=== PATIENT | male | born 1960 | race Caucasian/White ===

== ENCOUNTER 2017-04-17 15:39 | Outpatient (RCR) | payer OTHER, SELFPAY ==
[2017-04-17 17:16] LABS: Prothrombin Time (Protime)PT. 29.7 SECONDS (11.7-14.9)
== END 2017-04-17 15:45 | disposition home or self-care (01) ==
LOC: LAB 15:39
PROVIDERS: Family Provider Family Medicine; PCP Family Medicine; Visit Provider Internal Medicine Cardiovascular Disease
DX: I48.1 Persistent atrial fibrillation (principal); Z79.01 Long term (current) use of anticoagulants
CPT/HCPCS: 36415; 85610

== ENCOUNTER 2017-06-30 01:41 | Emergency (ER) | payer OTHER, SELFPAY ==
[2017-06-30 01:43] VITALS: BP 204/142; PULSE 98; RESP 17; TEMP 37.2; O2SAT 96; BMI 35.7
[2017-06-30 01:48] VITALS: BP 193/137
[2017-06-30 02:18] LABS: International Normalized Ratio 2.9; Prothrombin Time (Protime)PT. 30.5 SECONDS (11.7-14.9)
--- NOTE | 2017-06-30 02:26 | ED.VISSUMM ---
- ER Visit Summary Date of Service: 06/30/17 Chief Complaint: [] Nosebleed History of Present Illness: The patient is a 57 M [] presents with nosebleed beginning earlier today. Reports he is on Coumadin for atrial fibrillation. Reports he has been noncompliant in getting regularly scheduled INR checks. Reports compliance with his medications however. He presents with a blood pressure near 200 systolic despite being on blood pressure medication and reporting compliance. Reports he has been under some recent stress with the of a relative. Denies headache, blurred vision, chest pain, shortness of breath. Reports blood from the left nare. Physical Examination: [] Blood pressure 193/137, pulse ox 96% on room air, pulse 98, respiratory rate 17. 57-year-old male no acute distress. HEENT reveals blood from the left nare appearing from a likely posterior position. Right nares unremarkable. Remainder of exam is unremarkable. Test Results: [] INR:2.9 Emergency Department Course and Treatment: [] Patient given 0.2 mg orally of clonidine. Patient had Afrin soaked dressing applied to the left nares for 15 minutes. On serial examination patient had continued bleeding and this dressing was removed and replaced with 4.5 cm Rhino Rocket was placed in the left nares with good hemostasis. Patient was observed for an additional half an hour with no further bleeding. His blood pressure remained elevated and he was given 0.2 mg p.o. clonidine. INR measured 2.9. He was instructed to discontinue Coumadin use for just tomorrow and then continue his normal dosage. He was instructed to return to the emergency department in 72 hours for removal unless he can get into his primary care physician or ENT physician. He was instructed to watch his blood pressure closely. Treatment Plan: [] Follow-up with emergency department for nasal packing removal in 72 hours. Discontinue warfarin use for 24 hours. Disposition: [] Discharge, stable. Impression: [] Epistaxis Rhino Rocket placed by ED physician This note was generated with [employer] dictation software. It may contain incorrect words, spelling, and punctuation that were not noted in review of the chart prior to signing ED Disposition - Plan for ED Patient: Chief Complaint: Nosebleed Referrals: Efraín Sheldon MD [Primary Care Provider] -
[2017-06-30] MEDS: Oxymetazoline 0.05% 1 SPRAY SPRAY.BTL 2 SPRAY NASAL (02:34)
[2017-06-30] MEDS: cloNIDine HCl 0.1 MG Tablet 0.2 MG PO (02:34)
--- NOTE | 2017-06-30 02:56 | ED.DEP ---
ED Disposition - Plan for ED Patient: Disposition: Home or Assisted Living Chief Complaint: Nosebleed Instructions: Nosebleed Referrals: Efraín Sheldon MD [Primary Care Provider] - Additional Instructions: Do not take your Coumadin tomorrow and then the next day restart your normal regimen.
[2017-06-30 03:01] VITALS: BP 172/128; RESP 18
== END 2017-06-30 03:12 | disposition home or self-care (01) ==
PROVIDERS: Emergency Provider Emergency Medicine; Family Provider Family Medicine; PCP Family Medicine
DX: R04.0 Epistaxis (principal); I48.91 Unspecified atrial fibrillation; I10 Essential (primary) hypertension; E78.00 Pure hypercholesterolemia, unspecified; Z79.82 Long term (current) use of aspirin; Z79.01 Long term (current) use of anticoagulants; Z79.899 Other long term (current) drug therapy
CPT/HCPCS: 30901; 85610; 99282; A4216

== ENCOUNTER 2017-08-09 09:21 | Outpatient (RCR) | payer OTHER, SELFPAY ==
[2017-08-09 10:26] LABS: Prothrombin Time (Protime)PT. 31.4 SECONDS (11.7-14.9)
[2017-08-09 10:49] LABS: AST(SGOT) 29 U/L (15-37); Alanine Aminotransfer ALT/SGPT 46 U/L (16-61); Albumin, Serum 3.5 g/dL (3.2-5.0); Alkaline Phosphatase 97 U/L (45-117); Bilirubin, Direct 0.22 mg/dL (0.00-0.30); Cholesterol 109 mg/dL (200); Globulin 3.2 g/dL (2.2-4.2); High Density Lipoprotein 36 mg/dL; Protein, Total 6.7 g/dL (6.4-8.2); Triglycerides 114 mg/dL; Very Low Density Lipoprotein 23 mg/dL (5-40)
== END 2017-08-09 10:00 | disposition home or self-care (01) ==
LOC: LAB 09:21
PROVIDERS: Family Provider Family Medicine; PCP Family Medicine; Visit Provider Internal Medicine Cardiovascular Disease
DX: I48.91 Unspecified atrial fibrillation (principal); Z79.01 Long term (current) use of anticoagulants; E78.5 Hyperlipidemia, unspecified; Z79.899 Other long term (current) drug therapy
CPT/HCPCS: 36415; 80061; 80076; 85610

== ENCOUNTER → 2017-10-23 16:38 | Outpatient (CLI) | payer OTHER, SELFPAY ==
[2017-10-23 17:26] LABS: Absolute Lymphocyte Count 1.53 X10^3/ul (0.83-4.51); Basophil# 0.04 X10^3/uL; Basophil% 0.5 % (0-1); Eosinophil# 0.18 X10^3/uL; Eosinophils% 2.1 % (0-5); Hematocrit 45.6 % (40-54); Hemoglobin 15.4 g/dl (13.0-16.5); Lymphocyte # 1.53 X10^3/ul (4.0); Lymphocyte % 17.9 % (19-41); Mean Corp Hgb Conc 33.8 g/gl (32-36); Mean Corpuscular Hgb 30.1 pg (27.0-32.0); Mean Corpuscular Volume 89.1 fL (80-94); Mean Platelet Vol. 9.1 fl (6.2-12.0); Monocyte% 9.4 % (0-10); Neutrophil # 5.97 X10^3/uL (2.7-7.7); Platelet Count 206 K/mm3 (150-450); RBC Distribution Width SD 45.6 fl (35.1-43.9); Red Blood Count 5.12 M/mm3 (4.6-6.2); White Blood Count 8.5 K/mm3 (4.4-11.0)
[2017-10-23 17:32] LABS: POSITIVE COUNT NO; POSITIVE DIFFERENTIAL NO; POSITIVE MORPHOLOGY NO
[2017-10-23 17:47] LABS: International Normalized Ratio 2.8; Prothrombin Time (Protime)PT. 29.6 SECONDS (11.7-14.9)
[2017-10-23 18:02] LABS: ALB/GLOB Ratio 0.9 RATIO (0.9-2.4); AST(SGOT) 30 U/L (15-37); Alanine Aminotransfer ALT/SGPT 51 U/L (16-61); Albumin, Serum 3.4 g/dL (3.2-5.0); Alkaline Phosphatase 104 U/L (45-117); Anion Gap 8 (5-15); BUN 20 mg/dL (7-18); BUN/Creat Ratio 13.2 RATIO (10-20); Chloride 106 mmol/L (98-107); Creatinine, Serum 1.52 mg/dL (0.70-1.30); EST Glomerular Filtration Rate 51 mL/min (>60); Est Glom Filt Rate - Afr Amer 61 mL/min (>60); Globulin 3.8 g/dL (2.2-4.2); Glucose 94 mg/dL (74-106); Magnesium 2.1 mg/dL (1.6-2.6); Potassium 3.5 mmol/L (3.5-5.1); Protein, Total 7.2 g/dL (6.4-8.2); Sodium Level 139 mmol/L (136-145); T4 Total, Thyroxin 12.2 ug/dL (4.5-12.1); Thyroid Stim Hormone (TSH) 0.61 uIU/mL (0.358-3.74)
== END ==
PROVIDERS: Family Provider Family Medicine; PCP Family Medicine; Visit Provider Physician Assistant Medical
DX: I25.10 Atherosclerotic heart disease of native coronary artery without angina pectoris (principal); I42.9 Cardiomyopathy, unspecified; I10 Essential (primary) hypertension; I48.91 Unspecified atrial fibrillation
CPT/HCPCS: 36415; 80053; 83735; 84436; 84443; 85025; 85610

== ENCOUNTER 2017-11-21 15:27 | Outpatient (RCR) | payer OTHER, SELFPAY ==
[2017-11-05 16:57] LABS: International Normalized Ratio 3.3
[2017-11-21 16:14] LABS: International Normalized Ratio 3.1; Prothrombin Time (Protime)PT. 32.2 SECONDS (11.7-14.9)
== END 2017-11-21 17:00 | disposition home or self-care (01) ==
LOC: LAB 15:27
PROVIDERS: Family Provider Family Medicine; PCP Family Medicine; Visit Provider Internal Medicine Cardiovascular Disease
DX: I48.91 Unspecified atrial fibrillation (principal); Z79.01 Long term (current) use of anticoagulants
CPT/HCPCS: 36415; 85610

== ENCOUNTER 2017-12-12 15:08 | Outpatient (RCR) | payer OTHER, SELFPAY ==
[2017-12-12 17:15] LABS: International Normalized Ratio 2.6; Prothrombin Time (Protime)PT. 27.8 SECONDS (11.7-14.9)
== END 2017-12-12 16:00 | disposition home or self-care (01) ==
LOC: LAB 15:08
PROVIDERS: Family Provider Family Medicine; PCP Family Medicine; Visit Provider Internal Medicine Cardiovascular Disease
DX: I48.91 Unspecified atrial fibrillation (principal); Z79.01 Long term (current) use of anticoagulants
CPT/HCPCS: 36415; 85610

== ENCOUNTER 2018-04-02 15:25 | Outpatient (RCR) | payer OTHER, SELFPAY ==
[2018-04-02 16:56] LABS: International Normalized Ratio 2.1; Prothrombin Time (Protime)PT. 23.7 SECONDS (11.7-14.9)
== END 2018-04-02 16:25 | disposition home or self-care (01) ==
LOC: LAB 15:25
PROVIDERS: Family Provider Family Medicine; PCP Family Medicine; Referring Provider Internal Medicine Cardiovascular Disease; Visit Provider Internal Medicine Cardiovascular Disease
DX: I48.91 Unspecified atrial fibrillation (principal); Z79.01 Long term (current) use of anticoagulants
CPT/HCPCS: 36415; 85610

== ENCOUNTER 2018-06-27 09:13 | Outpatient (RCR) | payer OTHER, SELFPAY ==
[2018-04-06 15:31] VITALS: BMI 37.0
[2018-06-27 09:46] LABS: International Normalized Ratio 1.9; Prothrombin Time (Protime)PT. 21.6 SECONDS (11.7-14.9)
== END 2018-06-27 10:00 | disposition home or self-care (01) ==
LOC: LAB 09:13
PROVIDERS: Family Provider Family Medicine; PCP Family Medicine; Referring Provider Internal Medicine Cardiovascular Disease; Visit Provider Internal Medicine Cardiovascular Disease
DX: I48.91 Unspecified atrial fibrillation (principal); Z79.01 Long term (current) use of anticoagulants
CPT/HCPCS: 36415; 85610

== ENCOUNTER 2018-09-19 07:31 | Outpatient (RCR) | payer OTHER, SELFPAY ==
[2018-04-06 15:31] VITALS: BMI 37.0
[2018-07-01 15:31] VITALS: BMI 37.5
[2018-09-19 08:18] LABS: International Normalized Ratio 1.5; Prothrombin Time (Protime)PT. 18.3 SECONDS (11.7-14.9)
== END 2018-09-19 08:00 | disposition home or self-care (01) ==
LOC: LAB 07:31
PROVIDERS: Family Provider Family Medicine; PCP Family Medicine; Referring Provider Internal Medicine Cardiovascular Disease; Visit Provider Internal Medicine Cardiovascular Disease
DX: I48.91 Unspecified atrial fibrillation (principal); Z79.01 Long term (current) use of anticoagulants
CPT/HCPCS: 36415; 85610

== ENCOUNTER 2018-10-09 09:47 | Outpatient (RCR) | payer OTHER, SELFPAY ==
[2018-07-01 15:31] VITALS: BMI 37.5
[2018-10-09 08:55] VITALS: BMI 37.0
[2018-10-09 10:23] LABS: International Normalized Ratio 1.8; Prothrombin Time (Protime)PT. 20.8 SECONDS (11.7-14.9)
== END 2018-10-09 16:26 | disposition home or self-care (01) ==
LOC: LAB 09:47
PROVIDERS: Family Provider Family Medicine; PCP Family Medicine; Referring Provider Internal Medicine Cardiovascular Disease; Visit Provider Internal Medicine Cardiovascular Disease
DX: I48.91 Unspecified atrial fibrillation (principal); Z79.01 Long term (current) use of anticoagulants; Z79.899 Other long term (current) drug therapy
CPT/HCPCS: 36415; 85610

== ENCOUNTER 2018-12-09 15:25 | Outpatient (RCR) | payer OTHER, SELFPAY ==
[2018-10-28 16:26] VITALS: BMI 37.0
[2018-12-09 16:24] LABS: International Normalized Ratio 1.9; Prothrombin Time (Protime)PT. 21.7 SECONDS (11.7-14.9)
== END 2018-12-09 16:00 | disposition home or self-care (01) ==
LOC: LAB 15:25
PROVIDERS: Family Provider Family Medicine; PCP Family Medicine; Referring Provider Internal Medicine Cardiovascular Disease; Visit Provider Internal Medicine Cardiovascular Disease
DX: I48.91 Unspecified atrial fibrillation (principal); Z79.01 Long term (current) use of anticoagulants; Z79.899 Other long term (current) drug therapy
CPT/HCPCS: 36415; 85610

== ENCOUNTER 2019-01-22 09:54 | Outpatient (RCR) | payer OTHER, SELFPAY ==
[2018-10-28 16:26] VITALS: BMI 37.0
[2019-01-22 10:36] LABS: International Normalized Ratio 2.6; Prothrombin Time (Protime)PT. 27.7 SECONDS (11.7-14.9)
== END 2019-01-22 18:00 | disposition home or self-care (01) ==
LOC: LAB 09:54
PROVIDERS: Family Provider Family Medicine; PCP Family Medicine; Referring Provider Internal Medicine Cardiovascular Disease; Visit Provider Internal Medicine Cardiovascular Disease
DX: I48.91 Unspecified atrial fibrillation (principal); Z79.01 Long term (current) use of anticoagulants; Z79.899 Other long term (current) drug therapy
CPT/HCPCS: 36415; 85610

== ENCOUNTER 2019-04-19 09:06 | Outpatient (RCR) | payer OTHER, SELFPAY ==
[2019-01-22 14:32] VITALS: BMI 36.5
[2019-04-19 10:37] LABS: International Normalized Ratio 2.3; Prothrombin Time (Protime)PT. 24.9 SECONDS (11.7-14.9)
[2019-04-19 11:11] LABS: AST(SGOT) 20 U/L (15-37); Alanine Aminotransfer ALT/SGPT 33 U/L (16-61); Albumin, Serum 3.4 g/dL (3.2-5.0); Alkaline Phosphatase 97 U/L (45-117); Bilirubin, Direct 0.24 mg/dL (0.00-0.30); Cholesterol 108 mg/dL (200); Globulin 3.6 g/dL (2.2-4.2); High Density Lipoprotein 34 mg/dL; T4 Total, Thyroxin 9.1 ug/dL (4.5-12.1); Thyroid Stim Hormone (TSH) 1.17 uIU/mL (0.358-3.74); Triglycerides 106 mg/dL; Very Low Density Lipoprotein 21 mg/dL (5-40)
== END 2019-04-19 18:00 | disposition home or self-care (01) ==
LOC: LAB 09:06
PROVIDERS: Family Provider Family Medicine; PCP Family Medicine; Referring Provider Internal Medicine Cardiovascular Disease; Visit Provider Internal Medicine Cardiovascular Disease
DX: I48.19 Other persistent atrial fibrillation (principal); E78.00 Pure hypercholesterolemia, unspecified; Z79.01 Long term (current) use of anticoagulants; Z79.899 Other long term (current) drug therapy
CPT/HCPCS: 36415; 80061; 80076; 84436; 84443; 85610

== ENCOUNTER 2020-02-05 08:05 | Outpatient (RCR) | payer OTHER, SELFPAY ==
[2019-04-21 15:20] VITALS: BMI 36.8
== END 2020-02-05 18:00 | disposition home or self-care (01) ==
LOC: LAB 08:05
PROVIDERS: Family Provider Family Medicine; PCP Family Medicine; Referring Provider Internal Medicine Cardiovascular Disease; Visit Provider Internal Medicine Cardiovascular Disease
DX: I48.19 Other persistent atrial fibrillation (principal); Z79.01 Long term (current) use of anticoagulants
CPT/HCPCS: 36415; 85610

== ENCOUNTER → 2020-02-16 14:41 | Outpatient (CLI) | payer OTHER, SELFPAY ==
[2020-02-07 14:53] VITALS: BMI 36.1
--- NOTE | 2020-02-16 14:44 | ECHOCS_ITS ---
Reason For Study: Arrhythmia Procedure This was a 2D Doppler, Color Flow transthoracic echocardiogram. The study was technically difficult. Contrast injection was performed. Exam performed in department. Left Ventricle Normal LV size. Left ventricular systolic function is normal. The estimated ejection fraction is 55 %. Unable to assess diastolic dysfunction. No regional wall motion abnormalities noted. Right Ventricle Normal RV size. Normal systolic function. Atria The left atrium is moderately enlarged. The right atrium is moderately enlarged. No doppler evidence for ASD. Mitral Valve There is no mitral annular calcification. Normal mitral valve. Mild (1+) eccentric mitral valve insufficiency. Tricuspid Valve Normal tricuspid valve. Moderate (2+) eccentric tricuspid valve insufficiency. Right ventricular systolic pressure estimated to be 33 mmHg. Aortic Valve The aortic valve is not well visualized. Mild focal aortic valve calcification. Trivial aortic valve insufficiency. Pulmonic Valve The pulmonic valve is not well visualized. Great Vessels The aortic root is not well visualized. Pericardium/Pleural No pericardial effusion. Medication 22 gauge I.V. with prn adaptor inserted into left arm. Diluted definity 2ml given slow IV push to enhance endocardial definition. MMode/2D Measurements & Calculations LVIDd: 3.9 cm IVSd: 1.7 cm LA dimension: 4.2 cm LVIDs: 2.7 cm LVPWd: 1.4 cm FS: 31.3 % LAV(MOD-bp): 124.3 ml LA A4 area: 32.2 cm2 RA A4 area: 27.2 cm2 LAV(MOD-bp) Indexed: 50.5 ml/m2 LAV(MOD-sp2): 122.4 ml LAV(MOD-sp4): 126.5 ml Doppler Measurements & Calculations MV E max dayday: 89.9 cm/sec Ao V2 max: 103.7 cm/sec LV V1 max: 90.1 cm/sec Ao max P.3 mmHg LV V1 max P.3 mmHg PA V2 max: 144.5 cm/sec TR max dayday: 274.2 cm/sec TR max P.1 mmHg Interpretation Summary The study was technically difficult. Contrast injection was performed. Left ventricular systolic function is normal. The estimated ejection fraction is 55 %. The left atrium is moderately enlarged. The right atrium is moderately enlarged. Mild (1+) eccentric mitral valve insufficiency. Moderate (2+) eccentric tricuspid valve insufficiency. Mild focal aortic valve calcification. Trivial aortic valve insufficiency. Right ventricular systolic pressure estimated to be 33 mmHg. Unable to assess diastolic dysfunction. Ordering Physician: Augusto Wright Referring Physician: Efraín Sheldon Performed By: Jim Santamaria RCS
== END ==
PROVIDERS: PCP Family Medicine; Referring Provider Internal Medicine Cardiovascular Disease; Visit Provider Internal Medicine Cardiovascular Disease
DX: I25.10 Atherosclerotic heart disease of native coronary artery without angina pectoris (principal); I42.9 Cardiomyopathy, unspecified; I50.20 Unspecified systolic (congestive) heart failure; I48.19 Other persistent atrial fibrillation; I34.0 Nonrheumatic mitral (valve) insufficiency; I36.1 Nonrheumatic tricuspid (valve) insufficiency; I10 Essential (primary) hypertension
CPT/HCPCS: 93306; Q9957; A4216; C8929

== ENCOUNTER 2020-08-05 08:44 | Outpatient (RCR) | payer OTHER, SELFPAY ==
[2020-02-07 14:53] VITALS: BMI 36.1
[2020-08-05 09:44] LABS: AST(SGOT) 30 U/L (15-37); Alanine Aminotransfer ALT/SGPT 37 U/L (16-61); Albumin, Serum 3.6 g/dL (3.2-5.0); Alkaline Phosphatase 103 U/L (45-117); Bilirubin, Direct 0.26 mg/dL (0.00-0.30); Cholesterol 95 mg/dL (200); Globulin 3.4 g/dL (2.2-4.2); High Density Lipoprotein 34 mg/dL; Triglycerides 125 mg/dL; Very Low Density Lipoprotein 25 mg/dL (5-40)
== END 2020-08-05 18:00 | disposition home or self-care (01) ==
LOC: LAB 08:44
PROVIDERS: Family Provider Family Medicine; PCP Family Medicine; Referring Provider Internal Medicine Cardiovascular Disease; Visit Provider Internal Medicine Cardiovascular Disease
DX: I48.19 Other persistent atrial fibrillation (principal); Z79.01 Long term (current) use of anticoagulants; E78.5 Hyperlipidemia, unspecified
CPT/HCPCS: 36415; 80061; 80076

== ENCOUNTER 2021-01-13 08:39 | Outpatient (RCR) | payer OTHER, SELFPAY ==
[2020-08-09 15:04] VITALS: BMI 36.1
[2021-01-13 09:28] LABS: International Normalized Ratio 1.9; Prothrombin Time (Protime)PT. 21.4 SECONDS (11.7-14.9)
[2021-01-13 09:31] LABS: AST(SGOT) 25 U/L (15-37); Alanine Aminotransfer ALT/SGPT 34 U/L (16-61); Albumin, Serum 3.4 g/dL (3.2-5.0); Alkaline Phosphatase 94 U/L (45-117); Cholesterol 104 mg/dL (200); Globulin 3.6 g/dL (2.2-4.2); High Density Lipoprotein 37 mg/dL; Triglycerides 107 mg/dL; Very Low Density Lipoprotein 21 mg/dL (5-40)
== END 2021-01-28 03:37 | disposition home or self-care (01) ==
LOC: LAB 08:39
PROVIDERS: Family Provider Family Medicine; PCP Family Medicine; Referring Provider Internal Medicine Cardiovascular Disease; Visit Provider Internal Medicine Cardiovascular Disease
DX: E78.00 Pure hypercholesterolemia, unspecified (principal); I42.9 Cardiomyopathy, unspecified; I27.29 Other secondary pulmonary hypertension; I48.19 Other persistent atrial fibrillation; Z79.01 Long term (current) use of anticoagulants; Z79.899 Other long term (current) drug therapy
CPT/HCPCS: 36415; 80061; 80076; 85610

== ENCOUNTER 2021-05-19 09:29 | Outpatient (RCR) | payer OTHER, SELFPAY ==
[2021-01-28 03:37] VITALS: BMI 36.1
== END 2021-05-19 18:00 | disposition home or self-care (01) ==
LOC: LAB 09:29
PROVIDERS: Nurse Practitioner Family; Family Provider Family Medicine; PCP Family Medicine; Referring Provider Internal Medicine Cardiovascular Disease; Visit Provider Internal Medicine Cardiovascular Disease
DX: I48.19 Other persistent atrial fibrillation (principal); Z79.01 Long term (current) use of anticoagulants
CPT/HCPCS: 36415; 85610

== ENCOUNTER 2021-11-14 13:43 | Outpatient (RCR) | payer OTHER, SELFPAY ==
[2021-05-29 09:35] VITALS: BMI 36.1
[2021-11-10 10:12] LABS: AST(SGOT) 21 U/L (15-37); Alanine Aminotransfer ALT/SGPT 33 U/L (16-61); Albumin, Serum 3.4 g/dL (3.2-5.0); Alkaline Phosphatase 91 U/L (45-117); Bilirubin, Direct 0.32 mg/dL (0.00-0.30); Cholesterol 101 mg/dL (200); Globulin 3.6 g/dL (2.2-4.2); High Density Lipoprotein 34 mg/dL; T4 Total, Thyroxin 7.3 ug/dL (4.5-12.1); Triglycerides 139 mg/dL; Very Low Density Lipoprotein 28 mg/dL (5-40)
[2021-11-14 14:30] LABS: International Normalized Ratio 2.1; Prothrombin Time (Protime)PT. 22.8 SECONDS (11.7-14.9)
== END 2021-11-14 18:00 | disposition home or self-care (01) ==
LOC: LAB 13:43
PROVIDERS: Family Provider Family Medicine; PCP Family Medicine; Referring Provider Internal Medicine Cardiovascular Disease; Visit Provider Internal Medicine Cardiovascular Disease
DX: E78.00 Pure hypercholesterolemia, unspecified (principal); I48.19 Other persistent atrial fibrillation; Z79.01 Long term (current) use of anticoagulants
CPT/HCPCS: 36415; 80061; 80076; 84436; 84443; 85610

== ENCOUNTER 2022-05-11 07:57 | Outpatient (RCR) | payer OTHER, SELFPAY ==
[2021-11-28 22:49] VITALS: BMI 36.1
[2022-05-11 09:09] LABS: AST(SGOT) 23 U/L (15-37); Alanine Aminotransfer ALT/SGPT 32 U/L (16-61); Albumin, Serum 3.5 g/dL (3.2-5.0); Alkaline Phosphatase 96 U/L (45-117); Bilirubin, Direct 0.28 mg/dL (0.00-0.30); Cholesterol 94 mg/dL (200); Globulin 3.5 g/dL (2.2-4.2); High Density Lipoprotein 39 mg/dL; Triglycerides 98 mg/dL; Very Low Density Lipoprotein 20 mg/dL (5-40)
[2022-05-11 09:30] LABS: International Normalized Ratio 2.1; Prothrombin Time (Protime)PT. 23.5 SECONDS (11.7-14.9)
== END 2022-05-11 18:00 | disposition home or self-care (01) ==
LOC: LAB 07:57
PROVIDERS: Family Provider Family Medicine; PCP Family Medicine; Referring Provider Internal Medicine Cardiovascular Disease; Visit Provider Internal Medicine Cardiovascular Disease
DX: E78.00 Pure hypercholesterolemia, unspecified (principal); I48.19 Other persistent atrial fibrillation; Z79.01 Long term (current) use of anticoagulants; I25.10 Atherosclerotic heart disease of native coronary artery without angina pectoris
CPT/HCPCS: 36415; 80061; 80076; 85610

== ENCOUNTER 2022-10-19 16:10 | Emergency (ER) | payer OTHER, SELFPAY ==
[2022-10-19] VITALS (11 sets, daily range): BP systolic 102–155; BP diastolic 68–106; PULSE 80–110; RESP 16–20; TEMP 36.9–37.1; O2SAT 94–98; BMI 35.9
[2022-10-19 16:35] LABS: Absolute Lymphocyte Count 1.51 X10^3/uL (0.83-4.51); Absolute Neutrophil Count 15.2 X10^3/uL (2.0-7.7); Basophil# 0.12 X10^3/uL; Basophil% 0.7 % (0-1); Eosinophil# 0.12 X10^3/uL; Eosinophils% 0.7 % (0-5); Hematocrit 41.6 % (40-54); Hemoglobin 14.4 g/dL (13.0-16.5); Lymphocyte # 1.51 X10^3/ul (0.83-4.51); Lymphocyte % 8.2 % (19-41); Mean Corp Hgb Conc 34.6 g/dL (32-36); Mean Corpuscular Hgb 30.4 pg (27.0-32.0); Mean Corpuscular Volume 87.8 fL (80-94); Monocyte# 1.32 X10^3/uL; Monocyte% 7.2 % (0-10); NRBC Flagged by Analyzer 0 % (0-5); Neutrophil # 15.19 X10^3/uL (2.7-7.7); Neutrophil % 82.6 % (47-70); Platelet Count 233 K/mm3 (150-450); RBC Distribution Width CV 12.6 % (11.6-14.6); RBC Distribution Width SD 40.3 fl (35.1-43.9); Red Blood Count 4.74 M/mm3 (4.6-6.2); White Blood Count 18.4 K/mm3 (4.4-11.0)
--- NOTE | 2022-10-19 16:43 | EDS_ITS ---
HPI History of Present Illness Chief Complaint: Lower Extremity Injury Informant: patient Narrative Narrative: Patient states he was lifting a large piece of metal that had another piece of metal and there was some flipping of metal before a large piece of metal hit him across the left lower face, the chest, and his right groin which is where the major issue is due to significant bruising and pain. Able to walk but painful. Able to swallow and breathe without difficulty. He states the swelling at the left side of his face has gone down compared to what it was. He is on warfarin. Last time he had his INR checked was in May. He is on it for prophylaxis due to atrial fibrillation. Denies any abdominal pain or syncope/near syncope, just mostly pain. [facility] Medical History (Updated 10/19/22 @ 17:[address] Ad Morrow MD) Abnormal pulmonary function test Afib Atherosclerotic heart disease of [place] coronary artery without angina pectoris Atrial fibrillation Cardiomyopathy Chronic kidney disease Chronic kidney disease (CKD) Congestive heart failure with left ventricular systolic dysfunction COPD (chronic obstructive pulmonary disease) Essential hypertension Family history of CVA Family history of hypertension Hyperlipidemia Hypokalemia Left bundle branch block (LBBB) Long-term use of high-risk medication Mitral valve insufficiency Nonrheumatic mitral valve regurgitation Nonrheumatic tricuspid (valve) insufficiency LOUISE (obstructive sleep apnea) Paroxysmal atrial fibrillation Persistent atrial fibrillation Pulmonary hypertension Tricuspid valve insufficiency Home Medications aspirin 81 mg tablet,delayed release 81 mg PO DAILY #90 tabs 12/08/17 [Rx Last Taken Unknown] clonidine HCl 0.2 mg tablet 0.2 mg PO TID 90 days #270 tabs 01/31/22 [Rx Last Taken Unknown] furosemide 20 mg tablet 20 mg PO DAILY #90 tabs 01/31/22 [Rx Last Taken Unknown] hydralazine 100 mg tablet 100 mg .Route TID #270 tabs 05/01/22 [Rx Last Taken Unknown] atorvastatin 10 mg tablet 10 mg PO DAILY #90 tabs 07/15/22 [Rx Last Taken Unknown] lisinopril 20 mg tablet 20 mg .Route BID #180 tabs 07/29/22 [Rx Last Taken Unknown] potassium chloride 20 mEq tablet,extended release(part/cryst) (Klor-Con M) See Rx Instructions .Route .COMPLEX #90 tabs 08/19/22 [Rx Last Taken Unknown] carvedilol 25 mg tablet 25 mg PO BID #180 tabs 09/19/22 [Rx Last Taken Unknown] hydrocodone-acetaminophen 5-325mg 5mg-325mg 1 tab PO Q6H PRN PRN Pain 3 days #10 TABLETS 10/19/22 [Rx Last Taken Unknown] Allergy/AdvReac Type Severity Reaction Status Date / Time No Known Allergies Allergy Verified 05/16/22 15:13 Family History Mother CAD (coronary artery disease) Hypertension Father , Age 81 Diabetes Hypertension Brother Hypertension Sister CVA (cerebral vascular accident) Hypertension Surgical History History of right and left heart catheterization (01/22/15) Social History Smoking Status: Never smoker alcohol intake: never substance use type: does not use caffeine: Yes Type: carbonated beverages Number of servings: 2 ROS ROS ED Constitutional Constitutional ED: Denies chills or fever(s) Eyes Eyes: Denies change in vision or diplopia ENT ENT ED: Denies rhinorrhea or sore throat Cardiovascular Cardiovascular: Denies chest pain or palpitations Respiratory/Chest Respiratory/Chest: Denies cough or dyspnea Gastrointestinal Gastrointestinal: Denies abdominal pain, diarrhea, nausea or vomiting Genitourinary Genitourinary ED: Denies dysuria or hematuria Musculoskeletal Musculoskeletal: Reports extremity pain and neck pain; Denies back pain Integumentary Reports as per HPI; Denies abscess or rash Neurologic Neurologic: Denies headache(s), paresthesias or weakness Psychiatric Psychiatric: Denies anxiety or suicidal thoughts Hematologic/Lymphatic Hematologic/Lymphatic: Reports easy bleeding and easy bruising EXAM Physical Exam Const Vital Signs: 10/19/22 16:14 10/19/22 16:26 10/19/22 16:26 Temperature 98.4 F Temperature Source Temporal Pulse Rate 96 87 Respiratory Rate 16 Respiratory Effort Normal Non-Labored Respiratory Depth Normal Respiratory Pattern Normal Blood Pressure 155/106 H Blood Pressure Mean 122 Pulse Ox 96 98 Oxygen Delivery Method Room Air Room Air Room Air 10/19/22 17:26 10/19/22 18:00 Temperature Temperature Source Pulse Rate 81 88 Respiratory Rate 16 16 Respiratory Effort Respiratory Depth Respiratory Pattern Blood Pressure 125/88 H 106/85 H Blood Pressure Mean 100 92 Pulse Ox 98 97 Oxygen Delivery Method Room Air Room Air Positive well nourished and well developed General Appearance ED: well developed and NAD HEENT Reports moist mucous membranes HEENT Narrative: Swelling and tenderness to the left lateral neck just below the angle of the mandible which itself is nontender. Tissues are soft, not purpuric, there is no trismus. Intraoral exam is normal without signs of injury. There is no stridor or difficulty phonating. normocephalic and atraumatic Eyes PERRL and EOMs intact bilaterally Neck full ROM and supple General: tenderness; Negative for torticollis Chest Wall inspection of chest normal and palpation of chest normal Chest Narrative: Nontender lateral compression of the rib cage. Clavicles nontender sternum nontender and atraumatic. Resp normal respiratory effort and clear to auscultation bilaterally Cardio no murmurs Rhythm: abnormal rhythm irregularly irregular GI non-tender and non-distended Auscultation: normoactive bowel sounds Palpation: soft Back/Spine no CVA tenderness General Back: other FROM Extremity normal to inspection Extremity Narrative: Large area of swelling purpura/ecchymosis to the right groin involving mostly the thigh below the inguinal ligament. There is no abdominal tenderness. No bony tenderness at the greater trochanter, and the ASIS is nontender pelvis is stable to AP compression. General Extremety ED: Yes tenderness; Negative for edema or pulses abnormal General Extremity: Negative for edema or pulses abnormal Neuro oriented x3, CN's II-XII intact bilaterally and no sensory deficits noted Sensorium / Orientation: awake and alert Motor Exam: strength 5/5 throughout Skin no rashes or lesions noted and no wounds Skin Narrative: Large amount of purpura/ecchymosis in the right proximal thigh with a large amount of swelling associated with it. Intact pulses distally. MDM MDM MDM Narrative Medical decision making narrative: Hemoglobin reassuring at 14.4, and his INR is 1.7. I obtained x-rays of the right hip, 3 views of my interpretation negative for any acute bony fracture or injury. Radiology in agreement. Given that the patient has had improvement in the hematoma of his left neck, I do not think he needs angiography or advanced imaging here, he is having no trouble swallowing or breathing, so I think simply reversing his INR with oral vitamin K is reasonable without doing any other emergent reversing. I discussed with Dr. Fuentes who is on-call for the practice. The patient thinks he can go home, does not need be admitted to short-term rehab. She agrees with my decision to have the patient discontinue his warfarin for now, since I think the risk of worsening neck hematoma outweighs the potential risk of stroke since he is only anticoagulated for stroke prophylaxis. It is Friday and they will set up outpatient follow-up for Friday. Additionally, since the patient had a neck hematoma that is a day old and better than it was yesterday I feel he does not need to be monitored as an inpatient. Patient also prescribed something to use for pain. Lab Data Attestation: I reviewed the patient's lab results. Labs: Laboratory Results - last 24 hr 10/19/22 16:25 WBC 18.4 H RBC 4.74 Hgb 14.4 Hct 41.6 MCV 87.8 MCH 30.4 MCHC 34.6 RDW Std Deviation 40.3 RDW Coeff of [place] 12.6 Plt Count 233 MPV 9.0 Immature Gran % (Auto) 0.600 Neut % (Auto) 82.6 H Lymph % (Auto) 8.2 L [place] % (Auto) 7.2 Eos % (Auto) 0.7 Baso % (Auto) 0.7 Absolute Neuts (auto) 15.2 H Absolute Lymphs (auto) 1.51 Nucleated RBC % 0 PT 19.6 H INR 1.7 Sodium 139 Potassium 3.7 Chloride 108 H Carbon Dioxide 25.0 Anion Gap 6 BUN 18 Creatinine 1.39 H Estim Creat Clear Calc 63.87 Est GFR (MDRD) Af Amer 67 Est GFR (MDRD) Non-Af 55 L BUN/Creatinine Ratio 12.9 Glucose 173 H Calcium 8.3 L Radiography Diagnostic Testing: Clinical Impression(s) from Imaging Studies Hip/Pelvis X-Ray 10/19/22 17:05 IMPRESSION: No evidence of displaced pelvic or hip fracture. Electronically Signed: Lalo Donahue MD at 17:50 EDT , Discharge Plan Triage Chief Complaint: Lower Extremity Injury ED Provider: Ad Morrow Dx/Rx/DC Orders Clinical Impression: Traumatic hematoma of right thigh, Hematoma of neck, Warfarin-induced coagulopathy Instructions: ED Hematoma Prescriptions: New hydrocodone-acetaminophen [hydrocodone-acetaminophen] 5-325 mg tablet 1 tab PO Q6H PRN PRN (Reason: Pain) 3 Days Qty: 10 0RF Continued aspirin 81 mg tablet,delayed release (DR/EC) 81 mg PO DAILY Qty: 90 3RF furosemide 20 mg tablet 20 mg PO DAILY Qty: 90 3RF clonidine HCl 0.2 mg tablet 0.2 mg PO TID 90 Days Qty: 270 3RF hydralazine 100 mg tablet 100 mg .ROUTE TID Qty: 270 3RF Rx Instructions: 100 mg three times a day; atorvastatin 10 mg tablet 10 mg PO DAILY Qty: 90 3RF lisinopril 20 mg tablet 20 mg .ROUTE BID Qty: 180 4RF Rx Instructions: 20 mg twice a day; potassium chloride [Klor-Con M20] 20 mEq tablet,ER particles/crystals See Rx Instructions .ROUTE .COMPLEX Qty: 90 3RF Dose Instruction: TAKE 1 TABLET BY MOUTH EVERY DAY Rx Instructions: TAKE 1 TABLET BY MOUTH EVERY DAY carvedilol 25 mg tablet 25 mg PO BID Qty: 180 3RF Discontinued warfarin 5 mg tablet 5 mg PO DAILY Qty: 90 3RF Protocol: Dose Management Condition: Friday Dose/Route: 5 mg Instruction: 1 x 5 mg tablet Condition: Friday Dose/Route: 5 mg Instruction: 1 x 5 mg tablet Condition: Friday Dose/Route: 5 mg Instruction: 1 x 5 mg tablet Condition: Friday Dose/Route: 5 mg Instruction: 1 x 5 mg tablet Condition: Dose/Route: 5 mg Instruction: 1 x 5 mg tablet Condition: Friday Dose/Route: 5 mg Instruction: 1 x 5 mg tablet Condition: Friday Dose/Route: 5 mg Instruction: 1 x 5 mg tablet Protocol Text: Adjustment Start Date: 05/16/22 INR Value: 2.1 INR Date: 05/11/22 Recheck Date: 06/13/22 Primary Care Provider: Luisa Paulson Referrals: Luisa Paulson NP-C [Primary Care Provider] - 10/21/22 (Call for appointment time) Disposition Disposition: Home, Self Care
[2022-10-19 16:45] LABS: International Normalized Ratio 1.7; Prothrombin Time (Protime)PT. 19.6 SECONDS (11.7-14.9)
[2022-10-19] MEDS: Morphine 4 MG/ML Syringe IV (16:46)
[2022-10-19 16:48] LABS: Anion Gap 6 (5-15); BUN 18 mg/dL (7-18); BUN/Creat Ratio 12.9 RATIO (10-20); Calcium,Total 8.3 mg/dL (8.5-10.1); Chloride 108 mmol/L (98-107); Creatinine, Serum 1.39 mg/dL (0.70-1.30); EST Glomerular Filtration Rate 55 mL/min (>60); Est Glom Filt Rate - Afr Amer 67 mL/min (>60); Estimated Creatinine Clearance 63.87 ml/min; Glucose 173 mg/dL (74-106); Potassium 3.7 mmol/L (3.5-5.1); Sodium Level 139 mmol/L (136-145)
--- NOTE | 2022-10-19 17:05 | RAD_ITS ---
EXAM: XR RIGHT HIP WITH PELVIS WHEN PERFORMED, 2 OR 3 VIEWS CLINICAL INDICATION: inury TECHNIQUE: Two or three views of the right hip with pelvis when performed. COMPARISON: No relevant prior studies available. FINDINGS: BONES/JOINTS: Unremarkable. No displaced fracture. No destructive or sclerotic lesions. Note that overlapping bowel shadows may however obscure fine detail. Sacroiliac joint is unremarkable. No widening of the pubic symphysis. The articular structures are unremarkable. SOFT TISSUES: Unremarkable. No soft tissue swelling or gas. RAD/HIP, UNI W/ Pelvis 2-3 Views IMPRESSION: No evidence of displaced pelvic or hip fracture. Electronically Signed: Lalo Donahue MD at 17:50 EDT ,
[2022-10-19] MEDS: Phytonadione (Vit K1) 5 MG TABLET PO (18:02)
--- NOTE | 2022-10-19 19:48 | ED.RN ---
Pt went to stand up states he got dizzy, lightheaded, and fell into bed. Staff assist button hit. assisted into postion in bed VS rechecked. bp 105/[address] Morrow notified.
[2022-10-19 19:59] LABS: Hematocrit 36.8 % (40-54); Hemoglobin 12.6 g/dL (13.0-16.5)
[2022-10-19 20:08] LABS: Bedside Glucose 238 mg/dL (74-106)
--- NOTE | 2022-10-19 21:44 | CT_ITS ---
STUDY: CTA OF THE ABDOMINAL AORTA AND BILATERAL LOWER EXTREMITIES REASON FOR EXAM: Male, 62 years old. injury/bleeding -- R hip/thigh RADIATION DOSAGE (If Supplied By Facility): CTDIvol = ( 10.80 ) mGy, DLP = ( 812.99 ) mGycm TECHNIQUE: Axial CT angiography multi-detector data acquisition was obtained from the iliac crest to the knee following intravenous administration of IV 75mL Isovue-370. Axial images and MIP images were reconstructed from the axial data set. Post-processing of the angiographic images was performed, with multiplanar reformation and 3D reconstruction. Individualized dose optimization techniques were used for this CT. TECHNICAL QUALITY: Good COMPARISON: None. Descriptors of Narrowing: None (0%) Mild (< 50%) Moderate (50-70%) Severe (70-90%) Subtotal/Total Occlusion (90-100%) Non-Evaluable (technically non-diagnostic FINDINGS: Right common iliac artery: No demonstrated narrowing. Right external iliac artery: No demonstrated narrowing. Right internal iliac artery: No demonstrated narrowing. RIGHT LOWER EXTREMITY Right common femoral artery: No demonstrated narrowing. Right profundus femoris: No demonstrated narrowing. Right superficial femoral: No demonstrated narrowing. Right popliteal artery: No demonstrated narrowing. Large (8 x 15 x 17 cm) mass of increased attenuation within the right groin extending inferiorly into the medial aspect of the right thigh consistent with a large hematoma with surrounding edema. CT/CTA LWR EXTR W/O & W/DYE IMPRESSION: 1. Normal CT angiogram of the right lower extremity to the knee without vessel transection or occlusion. 2. Large acute hematoma of the right groin extending inferiorly into the medial right thigh.. Electronically Signed: Sabino Hampton MD at 23:52 EDT ,
--- NOTE | 2022-10-19 21:44 | CT_ITS ---
STUDY: CT SOFT TISSUE NECK WITH CONTRAST REASON FOR EXAM: Male, 62 years old. injury L RADIATION DOSAGE (If Supplied By Facility): CTDIvol = ( 17.12 ) mGy, DLP = ( 1120.95 ) mGycm TECHNIQUE: The patient was scanned in a multi-detector CT scanner. High resolution transaxial imaging was performed following intravenous administration of IV 75mL Isovue-370. Sagittal and coronal images were reconstructed. Individualized dose optimization techniques were used for this CT. COMPARISON: None. FINDINGS: Normal bilateral parotid glands. 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 Normal bilateral parapharyngeal spaces. Normal bilateral carotid spaces. Enlargement of the left submandibular gland with stranding of surrounding fat consistent with sialoadenitis extending throughout the left mandibular soft tissues but no loculated fluid collection to suggest abscess. Normal visualized nasopharynx. Normal retropharyngeal space. Normal perivertebral space. Normal visualized bilateral faucial tonsils. The visualized tongue, tongue base and oropharynx are normal. The visualized cervical lymph nodes (levels I-) are within normal size limits, and maintain normal morphology. There is no demonstrated solid or cystic mass lesion. There is no abnormal contrast enhancement. Normal epiglottis, bilateral vallecula and hypopharynx. The pre-epiglottic and paraglottic adipose spaces are normal. Normal visualized bilateral piriform sinuses, aryepiglottic folds, vocal cords, and arytenoid-cricoid articulations. Normal subglottic trachea. Normal bilateral lobes of the thyroid gland. Normal visualized pulmonary apices. Normal visualized paranasal sinuses. Normal visualized cervical spine. CT/Soft Tissue Neck WITH Contrast IMPRESSION: Left sialoadenitis with extensive surrounding inflammation but no abscess. Electronically Signed: Sabino Hampton MD at 23:38 EDT ,
[2022-10-19 22:03] LABS: Hematocrit 35.3 % (40-54); Hemoglobin 11.8 g/dL (13.0-16.5)
[2022-10-19] MEDS: fentaNYL 100 MCG/2 ML Ampul 50 MCG IV (22:11)
[2022-10-19] MEDS: Ondansetron 4 MG/2 ML Vial IV (23:22)
[2022-10-20] VITALS (9 sets, daily range): BP systolic 105–133; BP diastolic 52–92; PULSE 100–118; RESP 12–20; TEMP 36.6–37; O2SAT 92–100
--- NOTE | 2022-10-20 02:20 | HP.PCM.HOS_ITS ---
HPI - General General Date of Admission: 10/20/22 Date of Service: 10/20/22 Chief Complaint: Hematoma HPI Narrative MARISELA SHEETS, is a 62 M with a significant history of hypertension; and paroxysmal A-fib on Coumadin who presents to the emergency department with hematoma of the groin and scrotum. Reportedly the patient was working with 2 metallic parts when one moved forcibly and hit him at his left jaw; left chest and at his groin. He has tenderness at his left chest. He has swelling at his left jaw that actually decreased in size. However the swelling at his groin area has increased in size. Of note at the emergency department 2 attempts was made to discharge patient however when patient stood up he became light headed and diaphoretic. His blood pressure dropped. [facility] Medical History Abnormal pulmonary function test Afib Atherosclerotic heart disease of [place] coronary artery without angina pectoris Atrial fibrillation Cardiomyopathy Chronic kidney disease Chronic kidney disease (CKD) Congestive heart failure with left ventricular systolic dysfunction COPD (chronic obstructive pulmonary disease) Essential hypertension Family history of CVA Family history of hypertension Hyperlipidemia Hypokalemia Left bundle branch block (LBBB) Long-term use of high-risk medication Mitral valve insufficiency Nonrheumatic mitral valve regurgitation Nonrheumatic tricuspid (valve) insufficiency LOUISE (obstructive sleep apnea) Paroxysmal atrial fibrillation Persistent atrial fibrillation Pulmonary hypertension Tricuspid valve insufficiency Home Medications aspirin 81 mg tablet,delayed release 81 mg PO DAILY #90 tabs 12/08/17 [Rx Last Taken Unknown] clonidine HCl 0.2 mg tablet 0.2 mg PO TID 90 days #270 tabs 01/31/22 [Rx Last Taken Unknown] furosemide 20 mg tablet 20 mg PO DAILY #90 tabs 01/31/22 [Rx Last Taken Unknown] hydralazine 100 mg tablet 100 mg .Route TID #270 tabs 05/01/22 [Rx Last Taken Unknown] atorvastatin 10 mg tablet 10 mg PO DAILY #90 tabs 07/15/22 [Rx Last Taken Unknown] lisinopril 20 mg tablet 20 mg .Route BID #180 tabs 07/29/22 [Rx Last Taken Unknown] potassium chloride 20 mEq tablet,extended release(part/cryst) (Klor-Con M) See Rx Instructions .Route .COMPLEX #90 tabs 08/19/22 [Rx Last Taken Unknown] carvedilol 25 mg tablet 25 mg PO BID #180 tabs 09/19/22 [Rx Last Taken Unknown] hydrocodone-acetaminophen 5-325mg 5mg-325mg 1 tab PO Q6H PRN PRN Pain 3 days #10 TABLETS 10/19/22 [Rx Last Taken Unknown] Allergy/AdvReac Type Severity Reaction Status Date / Time No Known Allergies Allergy Verified 05/16/22 15:13 Family History Mother CAD (coronary artery disease) Hypertension Father , Age 81 Diabetes Hypertension Brother Hypertension Sister CVA (cerebral vascular accident) Hypertension Surgical History History of right and left heart catheterization (01/22/15) Social History Smoking Status: Never smoker alcohol intake: never substance use type: does not use caffeine: Yes Type: carbonated beverages Number of servings: 2 ROS ROS Narrative Pertinent positives and pertinent negatives as noted in HPI. All other systems were reviewed and are negative Vital Signs Vital Signs Vital Signs: 10/19/22 16:14 10/19/22 16:26 10/19/22 16:26 Temperature 98.4 F Temperature Source Temporal Pulse Rate 96 87 Respiratory Rate 16 Respiratory Effort Normal Non-Labored Respiratory Depth Normal Respiratory Pattern Normal Blood Pressure 155/106 H Blood Pressure Mean 122 Blood Pressure Source Blood Pressure Position Blood Pressure Location Pulse Ox 96 98 Oxygen Delivery Method Room Air Room Air Room Air Oxygen Flow Rate (L/min) 10/19/22 17:26 10/19/22 18:00 10/19/22 18:56 Temperature Temperature Source Pulse Rate 81 88 100 Respiratory Rate 16 16 16 Respiratory Effort Respiratory Depth Respiratory Pattern Blood Pressure 125/88 H 106/85 H 102/73 Blood Pressure Mean 100 92 Blood Pressure Source Blood Pressure Position Blood Pressure Location Pulse Ox 98 97 98 Oxygen Delivery Method Room Air Room Air Oxygen Flow Rate (L/min) 10/19/22 20:00 10/19/22 21:52 10/19/22 22:00 Temperature Temperature Source Pulse Rate 80 98 97 Respiratory Rate 16 20 H 16 Respiratory Effort Respiratory Depth Respiratory Pattern Blood Pressure 123/84 H 121/68 H 134/76 H Blood Pressure Mean 97 85 95 Blood Pressure Source Blood Pressure Position Blood Pressure Location Pulse Ox 97 98 98 Oxygen Delivery Method Room Air Room Air Room Air Oxygen Flow Rate (L/min) 10/19/22 23:41 10/19/22 23:00 10/19/22 23:56 Temperature 98.7 F 98.8 F Temperature Source Oral Oral Pulse Rate 100 110 H 108 H Respiratory Rate 18 17 17 Respiratory Effort Respiratory Depth Respiratory Pattern Blood Pressure 116/77 123/90 H 109/81 H Blood Pressure Mean 90 101 90 Blood Pressure Source Monitor Monitor Blood Pressure Position Semi-Fowlers Semi-Fowlers Blood Pressure Location Left Arm Right Arm Pulse Ox 94 98 96 Oxygen Delivery Method Room Air Room Air Room Air Oxygen Flow Rate (L/min) 10/20/22 00:00 10/20/22 00:56 10/20/22 01:00 Temperature 98.6 F 98.6 F Temperature Source Oral Oral Pulse Rate 108 H 111 H 114 H Respiratory Rate 19 H 20 H 18 Respiratory Effort Respiratory Depth Respiratory Pattern Blood Pressure 108/52 L 109/74 105/69 Blood Pressure Mean 70 85 81 Blood Pressure Source Monitor Blood Pressure Position Semi-Fowlers Blood Pressure Location Right Arm Pulse Ox 96 92 97 Oxygen Delivery Method Room Air Room Air Nasal Cannula Oxygen Flow Rate (L/min) 2 10/20/22 01:33 10/20/22 02:00 Temperature 98.3 F Temperature Source Oral Pulse Rate 100 112 H Respiratory Rate 18 18 Respiratory Effort Respiratory Depth Respiratory Pattern Blood Pressure 128/79 H 119/85 H Blood Pressure Mean 95 96 Blood Pressure Source Blood Pressure Position Blood Pressure Location Pulse Ox 98 98 Oxygen Delivery Method Room Air Room Air Oxygen Flow Rate (L/min) Weight Weight: 123.332 kg Body Mass Index (BMI) 35.9 Physical Exam Narrative Physical exam: General: Well-nourished, well-developed. Head: Normocephalic, swelling as left jaw. Eyes: Vision is grossly intact. EOMI ENT, no trauma, moist mucous membranes, no rhinorrhea Neck: Nontender, No thyromegaly. CVS: Regular rate and rhythm. S1-S2 present. No murmur, gallop or rub. Respiratory : clear to auscultation bilaterally, chest wall nontender Abdomen: Soft, nontender, nondistended, normal bowel sounds, no masses : Hematoma to groin; right worse than left. Hematoma to scrotal area. Back: Nontender, no CVA tenderness, no midline spinal tenderness, deformities, step-offs Extremities: Nontender full range of motion, no trauma Skin: Normal color, no trauma, abrasions Neuro: Alert, oriented, cranial nerves II through XII grossly intact. Psychiatry: Normal mood. Normal affect. Not depressed. Not anxious. Results Lab / Micro Data 10/19/22 21:58 10/19/22 16:25 Labs: Laboratory Results - last 24 hr 10/19/22 16:25: WBC 18.4 H, RBC 4.74, Hgb 14.4, Hct 41.6, MCV 87.8, MCH 30.4, MCHC 34.6, RDW Std Deviation 40.3, RDW Coeff of Francisca 12.6, Plt Count 233, MPV 9.0, Immature Gran % (Auto) 0.600, Neut % (Auto) 82.6 H, Lymph % (Auto) 8.2 L, [place] % (Auto) 7.2, Eos % (Auto) 0.7, Baso % (Auto) 0.7, Absolute Neuts (auto) 15.2 H, Absolute Lymphs (auto) 1.51, Nucleated RBC % 0, PT 19.6 H, INR 1.7, Sodium 139, Potassium 3.7, Chloride 108 H, Carbon Dioxide 25.0, Anion Gap 6, BUN 18, Creatinine 1.39 H, Estim Creat Clear Calc 63.87, Est GFR (MDRD) Af Amer 67, Est GFR (MDRD) Non-Af 55 L, BUN/Creatinine Ratio 12.9, Glucose 173 H, Calcium 8.3 L 10/19/22 19:50: POC Glucose 238 H 10/19/22 19:52: Hgb 12.6 L, Hct 36.8 L 10/19/22 21:58: Hgb 11.8 L, Hct 35.3 L, Antibody Screen NEGATIVE Radiology Impression Hip/Pelvis X-Ray 10/19/22 17:05 IMPRESSION: No evidence of displaced pelvic or hip fracture. Electronically Signed: Lalo Donahue MD at 17:50 EDT , Lower Extremity CTA 10/19/22 21:44 IMPRESSION: 1. Normal CT angiogram of the right lower extremity to the knee without vessel transection or occlusion. 2. Large acute hematoma of the right groin extending inferiorly into the medial right thigh.. Electronically Signed: Sabino Hampton MD at 23:52 EDT Reading Location ID and State: [id number] / [employer] Tel , Service support , Soft Tissue Neck CT 10/19/22 21:44 IMPRESSION: Left sialoadenitis with extensive surrounding inflammation but no abscess. Electronically Signed: Sabino Hampton MD at 23:38 EDT Reading Location ID and State: [place] [id number] / [employer] Tel , Service support , Assessment & Plan Assessment/Plan (1) Traumatic hematoma of right thigh: QUALIFIERS: Encounter type: initial encounter Qualified Code(s): S70.11XA - Contusion of right thigh, initial encounter (2) Hematoma of neck: QUALIFIERS: Encounter type: initial encounter Qualified Code(s): S10.93XA - Contusion of unspecified part of neck, initial encounter (3) Warfarin-induced coagulopathy: PLAN: Plan Treatment hematoma of right side Radiologist impression of hip and pelvis x-ray: No evidence of displaced pelvic or hip fracture. Hospitalist independent interpretation of hip and pelvis x-ray: Agrees with radiologist interpretation Radiologist impression of lower extremity CTA: 1. Normal CT angiogram of the right lower extremity to the knee without vessel transection or occlusion. 2. Large acute hematoma of the right groin extending inferiorly into the medial right thigh.. INR presentation was 1.7. Received vitamin K and FFP. Trend INR. General surgery consult. Hematoma of neck Radiologist impression of soft tissues neck: Left sialoadenitis with extensive surrounding inflammation but no abscess. History of hypertension Lowest systolic blood pressure 105. Limited external blood pressure of 52. With bleeding and lightheadedness we will hold all home blood pressure medications including diuretics. Trend blood pressures. As needed labetalol ordered. Hold all blood pressure medications. As needed labetalol ordered. Trend PT/INR. DVT prophylaxis: SCDs ordered. Time spent in the patient's overall evaluation,decision-making process, review of diagnostic data, adjustment of management, discussion with other providers, nursing nursing and ancillary staff involved in patient's care documentation, 60 minutes.
--- NOTE | 2022-10-20 04:01 | HP.PCM_ITS ---
HPI - General General Date of Admission: 10/20/22 Chief Complaint: Hematoma HPI Narrative MARISELA PERKINS, is a 62 M who presented to [facility] yesterday following an [place]. He reports that he was trying to place a piece of steel under a larger (approximately 70 pound) piece of steel when the top piece fell off the load of his tractor and impacted him on the left neck and right thigh. He was noted to have some swelling of his left neck and a hematoma developing of his right thigh, initially, but otherwise felt to be c linically stable. Over the course of his emergency room observation emergency medicine attempted to ambulate him and he became presyncopal. Hemoglobin was serially checked and felt to 12 then 11 g/dL. Patient is on Coumadin for history of atrial fibrillation. Upon the second failure to ambulate, CT angiogram of the lower extremity was obtained. This showed a large hematoma in the anterior compartment of the thigh extending up to 17 cm. No arterial injury was noted. Hospitalist service was asked to evaluate the patient and tech intern they asked for a surgical consultation given the patient's presentation. A history of atrial fibrillation, patient has a history of multiple valvular insufficiency, pulmonary hypertension, CHF, atherosclerotic disease, abnormal PFTs, and obstructive sleep apnea. Patient speaks freely and has no airway limitations. He states overall he is feeling somewhat better than when he first came in. He also thinks he may notice some improvements in the hardness of his right groin hematoma. [facility] Medical History (Updated 10/20/22 @ 04:[address] Isreal Thorpe MD) Abnormal pulmonary function test Afib Atherosclerotic heart disease of [place] coronary artery without angina pectoris Atrial fibrillation Cardiomyopathy Chronic kidney disease Chronic kidney disease (CKD) Congestive heart failure with left ventricular systolic dysfunction COPD (chronic obstructive pulmonary disease) Essential hypertension Family history of CVA Family history of hypertension Hyperlipidemia Hypokalemia Left bundle branch block (LBBB) Long-term use of high-risk medication Mitral valve insufficiency Nonrheumatic mitral valve regurgitation Nonrheumatic tricuspid (valve) insufficiency LOUISE (obstructive sleep apnea) Paroxysmal atrial fibrillation Persistent atrial fibrillation Pulmonary hypertension Tricuspid valve insufficiency Home Medications aspirin 81 mg tablet,delayed release 81 mg PO DAILY #90 tabs 12/08/17 [Rx Last Taken Unknown] clonidine HCl 0.2 mg tablet 0.2 mg PO TID 90 days #270 tabs 01/31/22 [Rx Last Taken Unknown] furosemide 20 mg tablet 20 mg PO DAILY #90 tabs 01/31/22 [Rx Last Taken Unknown] hydralazine 100 mg tablet 100 mg .Route TID #270 tabs 05/01/22 [Rx Last Taken Unknown] atorvastatin 10 mg tablet 10 mg PO DAILY #90 tabs 07/15/22 [Rx Last Taken Unknown] lisinopril 20 mg tablet 20 mg .Route BID #180 tabs 07/29/22 [Rx Last Taken Unknown] potassium chloride 20 mEq tablet,extended release(part/cryst) (Klor-Con M) See Rx Instructions .Route .COMPLEX #90 tabs 08/19/22 [Rx Last Taken Unknown] carvedilol 25 mg tablet 25 mg PO BID #180 tabs 09/19/22 [Rx Last Taken Unknown] hydrocodone-acetaminophen 5-325mg 5mg-325mg 1 tab PO Q6H PRN PRN Pain 3 days #10 TABLETS 10/19/22 [Rx Last Taken Unknown] Allergy/AdvReac Type Severity Reaction Status Date / Time No Known Allergies Allergy Verified 05/16/22 15:13 Family History Mother CAD (coronary artery disease) Hypertension Father , Age 81 Diabetes Hypertension Brother Hypertension Sister CVA (cerebral vascular accident) Hypertension Surgical History History of right and left heart catheterization (01/22/15) Social History Smoking Status: Never smoker alcohol intake: never substance use type: does not use caffeine: Yes Type: carbonated beverages Number of servings: 2 ROS Respiratory/Chest Respiratory/Chest: Denies shortness of breath at rest Neurologic Neurologic: Reports dizziness and weakness Vital Signs Vital Signs Vital Signs: 10/19/22 16:14 10/19/22 16:26 10/19/22 16:26 Temperature 98.4 F Temperature Source Temporal Pulse Rate 96 87 Respiratory Rate 16 Respiratory Effort Normal Non-Labored Respiratory Depth Normal Respiratory Pattern Normal Blood Pressure 155/106 H Blood Pressure Mean 122 Blood Pressure Source Blood Pressure Position Blood Pressure Location Pulse Ox 96 98 Oxygen Delivery Method Room Air Room Air Room Air Oxygen Flow Rate (L/min) 10/19/22 17:26 10/19/22 18:00 10/19/22 18:56 Temperature Temperature Source Pulse Rate 81 88 100 Respiratory Rate 16 16 16 Respiratory Effort Respiratory Depth Respiratory Pattern Blood Pressure 125/88 H 106/85 H 102/73 Blood Pressure Mean 100 92 Blood Pressure Source Blood Pressure Position Blood Pressure Location Pulse Ox 98 97 98 Oxygen Delivery Method Room Air Room Air Oxygen Flow Rate (L/min) 10/19/22 20:00 10/19/22 21:52 10/19/22 22:00 Temperature Temperature Source Pulse Rate 80 98 97 Respiratory Rate 16 20 H 16 Respiratory Effort Respiratory Depth Respiratory Pattern Blood Pressure 123/84 H 121/68 H 134/76 H Blood Pressure Mean 97 85 95 Blood Pressure Source Blood Pressure Position Blood Pressure Location Pulse Ox 97 98 98 Oxygen Delivery Method Room Air Room Air Room Air Oxygen Flow Rate (L/min) 10/19/22 23:41 10/19/22 23:00 10/19/22 23:56 Temperature 98.7 F 98.8 F Temperature Source Oral Oral Pulse Rate 100 110 H 108 H Respiratory Rate 18 17 17 Respiratory Effort Respiratory Depth Respiratory Pattern Blood Pressure 116/77 123/90 H 109/81 H Blood Pressure Mean 90 101 90 Blood Pressure Source Monitor Monitor Blood Pressure Position Semi-Fowlers Semi-Fowlers Blood Pressure Location Left Arm Right Arm Pulse Ox 94 98 96 Oxygen Delivery Method Room Air Room Air Room Air Oxygen Flow Rate (L/min) 10/20/22 00:00 10/20/22 00:56 10/20/22 01:00 Temperature 98.6 F 98.6 F Temperature Source Oral Oral Pulse Rate 108 H 111 H 114 H Respiratory Rate 19 H 20 H 18 Respiratory Effort Respiratory Depth Respiratory Pattern Blood Pressure 108/52 L 109/74 105/69 Blood Pressure Mean 70 85 81 Blood Pressure Source Monitor Blood Pressure Position Semi-Fowlers Blood Pressure Location Right Arm Pulse Ox 96 92 97 Oxygen Delivery Method Room Air Room Air Nasal Cannula Oxygen Flow Rate (L/min) 2 10/20/22 01:33 10/20/22 02:00 10/20/22 03:00 Temperature 98.3 F Temperature Source Oral Pulse Rate 100 112 H 113 H Respiratory Rate 18 18 18 Respiratory Effort Respiratory Depth Respiratory Pattern Blood Pressure 128/79 H 119/85 H 126/92 H Blood Pressure Mean 95 96 103 Blood Pressure Source Blood Pressure Position Blood Pressure Location Pulse Ox 98 98 98 Oxygen Delivery Method Room Air Room Air Room Air Oxygen Flow Rate (L/min) Weight Weight: 271 lb 14.4 oz Body Mass Index (BMI) 35.9 Physical Exam Const alert and oriented x3 Neck Neck Narrative: Left submandibular swelling with associated tenderness Resp normal respiratory effort Extremity Extremity Narrative: Patient with large right anterior thigh hematoma with bullae developing towards the perineum. Ramirez catheter has been placed. Patient has distally intact motor function and is sensory intact. Neuro Neuro Narrative: GCS 15 Results Lab / Micro Data 10/19/22 21:58 10/19/22 16:25 Labs: Laboratory Results - last 24 hr 10/19/22 16:25: WBC 18.4 H, RBC 4.74, Hgb 14.4, Hct 41.6, MCV 87.8, MCH 30.4, MCHC 34.6, RDW Std Deviation 40.3, RDW Coeff of Francisca 12.6, Plt Count 233, MPV 9.0, Immature Gran % (Auto) 0.600, Neut % (Auto) 82.6 H, Lymph % (Auto) 8.2 L, [place] % (Auto) 7.2, Eos % (Auto) 0.7, Baso % (Auto) 0.7, Absolute Neuts (auto) 15.2 H, Absolute Lymphs (auto) 1.51, Nucleated RBC % 0, PT 19.6 H, INR 1.7, Sodium 139, Potassium 3.7, Chloride 108 H, Carbon Dioxide 25.0, Anion Gap 6, BUN 18, Creatinine 1.39 H, Estim Creat Clear Calc 63.87, Est GFR (MDRD) Af Amer 67, Est GFR (MDRD) Non-Af 55 L, BUN/Creatinine Ratio 12.9, Glucose 173 H, Calcium 8.3 L 10/19/22 19:50: POC Glucose 238 H 10/19/22 19:52: Hgb 12.6 L, Hct 36.8 L 10/19/22 21:58: Hgb 11.8 L, Hct 35.3 L, Antibody Screen NEGATIVE Radiology Impression Hip/Pelvis X-Ray 10/19/22 17:05 IMPRESSION: No evidence of displaced pelvic or hip fracture. Electronically Signed: Lalo Donahue MD at 17:50 EDT , Lower Extremity CTA 10/19/22 21:44 IMPRESSION: 1. Normal CT angiogram of the right lower extremity to the knee without vessel transection or occlusion. 2. Large acute hematoma of the right groin extending inferiorly into the medial right thigh.. Electronically Signed: Sabino Hampton MD at 23:52 EDT , Soft Tissue Neck CT 10/19/22 21:44 IMPRESSION: Left sialoadenitis with extensive surrounding inflammation but no abscess. Electronically Signed: Sabino Hampton MD at 23:38 EDT , Assessment & Plan Assessment/Plan (1) Warfarin-induced coagulopathy: (2) Hematoma of neck: QUALIFIERS: Encounter type: initial encounter Qualified Code(s): S10.93XA - Contusion of unspecified part of neck, initial encounter (3) Traumatic hematoma of right thigh: QUALIFIERS: Encounter type: initial encounter Qualified Code(s): S70.11XA - Contusion of right thigh, initial encounter (4) Pre-syncope: PLAN: Plan This is a 62-year-old male, presently GCS 15, who sustained blunt force trauma to his left neck and right thigh after an approximately 70 pound piece of steel impacted those areas. There does not appear to be any bony abnormality per CT/x-ray imaging. He is anticoagulated with Coumadin and a presenting INR of 1.7 was obtained in the ER. Unfortunately his hematoma has progressed since his arrival and his hemoglobin has yet to stabilize. CT angiogram showed arterial phase without signs of vascular injury or active blush, but hematoma does appear more centered on the right femoral vein. Patient, Mr. Perkins, has been presyncopal with staff attempts at ambulating. Overall the hemoglobin appears to be falling more slowly, however, it has not yet plateaued. In light of the above presentation, I have recommended transfer to a designated trauma center for evaluation. Patient would benefit from the availability of multidisciplinary team with on-call vascular and urologic support as well as possible need for interventional radiologic support. Additionally we are limite d in the blood products on hand. I have shared with Mr. Perkins that I believe he is stable for transfer, but recommended this evaluation should he have further bleeding and/or complication from this trauma. Charges/Coding Visit Charges Office Visits / Consults: [id number] ED Visit; Moderate Severity
[2022-10-20] MEDS: Metoprolol Tartrate 5 MG/5 ML Vial IV (06:05)
== END 2022-10-20 06:37 | disposition short-term general hospital (02) ==
PROVIDERS: Emergency Provider Emergency Medicine; PCP Nurse Practitioner Family; Visit Provider Emergency Medicine
DX: S70.11XA Contusion of right thigh, initial encounter (principal); J44.9 Chronic obstructive pulmonary disease, unspecified; I13.0 Hypertensive heart and chronic kidney disease with heart failure and stage 1 through stage 4 chronic kidney disease, or unspecified chronic kidney disease; I50.22 Chronic systolic (congestive) heart failure; I48.0 Paroxysmal atrial fibrillation; R19.00 Intra-abdominal and pelvic swelling, mass and lump, unspecified site; S30.1XXA Contusion of abdominal wall, initial encounter; S10.93XA Contusion of unspecified part of neck, initial encounter; I25.10 Atherosclerotic heart disease of native coronary artery without angina pectoris; N18.9 Chronic kidney disease, unspecified; R42 Dizziness and giddiness; Z79.01 Long term (current) use of anticoagulants; W22.8XXA Striking against or struck by other objects, initial encounter; Y92.79 Other farm location as the place of occurrence of the external cause
CPT/HCPCS: 51702; 70491; 73502; 73706; 80048; 82962; 85014; 85018; 85025; 85610; 86850; 86900; 86901; 96361; 96374; 96375; 99285; J7040; J7050; P9017; Q9967; A4216; J2405

== ENCOUNTER → 2022-11-05 | Outpatient (CLI) | payer OTHER, SELFPAY ==
[2022-11-05 18:02] LABS: Absolute Lymphocyte Count 0.88 X10^3/uL (0.83-4.51); Absolute Neutrophil Count 4.1 X10^3/uL (2.0-7.7); Basophil# 0.08 X10^3/uL; Basophil% 1.3 % (0-1); Eosinophil# 0.21 X10^3/uL; Eosinophils% 3.5 % (0-5); Hematocrit 32.4 % (40-54); Hemoglobin 10.2 g/dL (13.0-16.5); Lymphocyte # 0.88 X10^3/ul (0.83-4.51); Lymphocyte % 14.7 % (19-41); Mean Corp Hgb Conc 31.5 g/dL (32-36); Mean Corpuscular Hgb 30.9 pg (27.0-32.0); Mean Corpuscular Volume 98.2 fL (80-94); Mean Platelet Vol. 8.9 fl (6.2-12.0); Monocyte# 0.73 X10^3/uL; Monocyte% 12.2 % (0-10); NRBC Flagged by Analyzer 0 % (0-5); Neutrophil # 4.07 X10^3/uL (2.7-7.7); Neutrophil % 68.1 % (47-70); Platelet Count 373 K/mm3 (150-450); RBC Distribution Width CV 16.4 % (11.6-14.6); RBC Distribution Width SD 58.4 fl (35.1-43.9)
[2022-11-05 18:06] LABS: International Normalized Ratio 1.2; Prothrombin Time (Protime)PT. 15.5 SECONDS (11.7-14.9)
[2022-11-05 18:07] LABS: Partial Thromboplast Time 36.1 Seconds (24.1-36.2)
[2022-11-05 18:29] LABS: ALB/GLOB Ratio 0.9 RATIO (0.9-2.4); AST(SGOT) 27 U/L (15-37); Alanine Aminotransfer ALT/SGPT 37 U/L (16-61); Albumin, Serum 3.2 g/dL (3.2-5.0); Alkaline Phosphatase 96 U/L (45-117); Anion Gap 6 (5-15); BUN 20 mg/dL (7-18); BUN/Creat Ratio 16.4 RATIO (10-20); Calcium,Total 8.5 mg/dL (8.5-10.1); Chloride 109 mmol/L (98-107); Creatinine, Serum 1.22 mg/dL (0.70-1.30); EST Glomerular Filtration Rate 64 mL/min (>60); Est Glom Filt Rate - Afr Amer 78 mL/min (>60); Globulin 3.6 g/dL (2.2-4.2); Glucose 104 mg/dL (74-106); Protein, Total 6.8 g/dL (6.4-8.2); Sodium Level 140 mmol/L (136-145)
== END | disposition home or self-care (01) ==
LOC: BFHLAB 15:39
PROVIDERS: PCP Nurse Practitioner Family; Referring Provider Nurse Practitioner Family; Visit Provider Nurse Practitioner Family
DX: I10 Essential (primary) hypertension (principal); I48.91 Unspecified atrial fibrillation
CPT/HCPCS: 36415; 80053; 85025; 85610; 85730

== ENCOUNTER 2022-11-21 16:14 | Outpatient (RCR) | payer OTHER, SELFPAY ==
[2022-11-14 15:09] LABS: International Normalized Ratio 1.3
[2022-11-21 17:20] LABS: International Normalized Ratio 1.5; Prothrombin Time (Protime)PT. 18.4 SECONDS (11.7-14.9)
== END 2022-11-21 18:00 | disposition home or self-care (01) ==
LOC: LAB 16:14
PROVIDERS: Physician Assistant Medical; PCP Nurse Practitioner Family; Referring Provider Internal Medicine Cardiovascular Disease; Visit Provider Internal Medicine Cardiovascular Disease
DX: Z79.01 Long term (current) use of anticoagulants (principal)
CPT/HCPCS: 36415; 85610

== ENCOUNTER 2022-12-07 08:26 | Outpatient (RCR) | payer OTHER, SELFPAY ==
[2022-12-07 09:49] LABS: International Normalized Ratio 1.9; Prothrombin Time (Protime)PT. 22.3 SECONDS (11.7-14.9)
== END 2022-12-07 18:00 | disposition home or self-care (01) ==
LOC: LAB 08:26
PROVIDERS: PCP Nurse Practitioner Family; Referring Provider Internal Medicine Cardiovascular Disease; Visit Provider Internal Medicine Cardiovascular Disease
DX: Z79.01 Long term (current) use of anticoagulants (principal)
CPT/HCPCS: 36415; 85610

== ENCOUNTER 2023-05-10 07:40 | Outpatient (RCR) | payer OTHER, SELFPAY ==
[2023-05-10 10:02] LABS: International Normalized Ratio 1.7; Prothrombin Time (Protime)PT. 20.5 SECONDS (11.7-14.9)
== END 2023-05-29 18:00 | disposition home or self-care (01) ==
LOC: LAB 07:40
PROVIDERS: PCP Nurse Practitioner Family; Referring Provider Physician Assistant Medical; Visit Provider Physician Assistant Medical
DX: Z79.01 Long term (current) use of anticoagulants (principal); I48.19 Other persistent atrial fibrillation
CPT/HCPCS: 36415; 85610

== ENCOUNTER → 2023-05-20 | Outpatient (CLI) | payer OTHER, SELFPAY ==
[2023-05-20 16:08] LABS: Absolute Lymphocyte Count 1.62 X10^3/uL (0.83-4.51); Absolute Neutrophil Count 4.3 X10^3/uL (2.0-7.7); Basophil# 0.13 X10^3/uL; Basophil% 1.8 % (0-1); Eosinophil# 0.37 X10^3/uL; Eosinophils% 5.1 % (0-5); Hematocrit 43.8 % (40-54); Hemoglobin 14.7 g/dL (13.0-16.5); Lymphocyte # 1.62 X10^3/ul (0.83-4.51); Lymphocyte % 22.3 % (19-41); Mean Corp Hgb Conc 33.6 g/dL (32-36); Mean Corpuscular Hgb 29.8 pg (27.0-32.0); Mean Corpuscular Volume 88.8 fL (80-94); Mean Platelet Vol. 9.1 fl (6.2-12.0); Monocyte# 0.85 X10^3/uL; Monocyte% 11.7 % (0-10); NRBC Flagged by Analyzer 0 % (0-5); Neutrophil # 4.25 X10^3/uL (2.7-7.7); Neutrophil % 58.7 % (47-70); Platelet Count 241 K/mm3 (150-450); RBC Distribution Width CV 13.2 % (11.6-14.6); RBC Distribution Width SD 42.7 fl (35.1-43.9); Red Blood Count 4.93 M/mm3 (4.6-6.2); White Blood Count 7.3 K/mm3 (4.4-11.0)
[2023-05-20 16:11] LABS: International Normalized Ratio 1.8; Prothrombin Time (Protime)PT. 20.6 SECONDS (11.7-14.9)
--- OUTSIDE RECORDS SUMMARY | 2023-05-20 20:23 | XMS RPT_ITS | CCD ---
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 0 10/23/2022 11/22/2022 Active Completed/Discontinued Medications Medication Drug Class(es) Dates Sig (Normalized) Sig (Original) amiodarone hydrochloride 200 mg oral tablet (20 sources) Antiarrhythmic Start: 01-09-2015 take 1 tablet by mouth once daily AMIODARONE HCL 200 MG TABS One tablet by mouth daily AMIODARONE HCL [id number] Augusto Wright MD Problems Active Problems Problem Classification Problem Date Documented Date Episodic/Chronic Acute and unspecified renal failure (1 source) Acute injury of kidney; Translations: [Acute kidney failure, unspecified] Onset: 10-22-2022 10-23-2022 Episodic Acute posthemorrhagic anemia (1 source) Acute posthemorrhagic anemia; Translations: [Acute posthemorrhagic anemia] 10-23-2022 Episodic Cardiac dysrhythmias (20 sources) Persistent atrial fibrillation; Translations: [Permanent atrial fibrillation ] Onset: 01-05-2015 09-19-2015 Chronic Chronic kidney disease (8 sources) Chronic kidney disease stage 2; Translations: [Chronic kidney disease, stage 2 (mild)] Onset: 01-09-2015 01-09-2015 Chronic Chronic obstructive pulmonary disease and bronchiectasis (8 sources) Mild chronic obstructive pulmonary disease; Translations: [Chronic obstructive pulmonary disease, unspecified] Onset: 01-24-2016 01-24-2016 Chronic Conduction disorders (8 sources) Left bundle branch block; Translations: [Left bundle-branch block, unspecified] Onset: 01-05-2015 01-05-2015 Chronic Congestive heart failure; nonhypertensive (8 sources) Congestive heart failure due to left ventricular systolic dysfunction; Translations: [Left ventricular failure] Onset: 01-09-2015 01-09-2015 Chronic Coronary atherosclerosis and other heart disease (16 sources) Coronary atherosclerosis; Translations: [Atherosclerotic heart disease of [place] coronary artery without angina pectoris] Onset: 01-09-2015 01-09-2015 Chronic Disorders of lipid metabolism (8 sources) Hyperlipidemia; Translations: [Hyperlipidemia, unspecified] Onset: 02-09-2016 02-09-2016 Chronic E Codes: Place of occurrence (1 source) Effect of exposure to external cause; Translations: [Other farm location as the place of occurrence of the external cause] Onset: 10-20-2022 10-23-2022 Episodic Essential hypertension (9 sources) Hypertensive disorder; Translations: [Essential (primary) hypertension] Onset: 01-09-2015 01-09-2015 Chronic Heart valve disorders (20 sources) Tricuspid incompetence, non-rheumatic ; Translations: [Mitral valve regurgitation] Onset: 01-05-2015 Resolved: 05-24-2016 02-05-2016 Chronic Other aftercare (1 source) Anticoagulant effect; Translations: [senior care (current) use of anticoagulants] 10-23-2022 Episodic Other and ill-defined heart disease (8 sources) Cardiomegaly; Translations: [Bilateral enlargement of atria] Onset: 01-05-2015 01-05-2015 Chronic Other injuries and conditions due to external causes (1 source) Hematoma; Translations: [Other injury of unspecified body region, initial encounter] Onset: 10-20-2022 10-23-2022 Episodic Other injuries and conditions due to external causes (1 source) Injury of face; Translations: [Unspecified injury of face, initial encounter] Onset: 10-20-2022 10-23-2022 Episodic Other injuries and conditions due to external causes (1 source) Injury of hip region; Translations: [Other specified injuries of right hip, initial encounter] Onset: 10-20-2022 10-23-2022 Episodic Other injuries and conditions due to external causes (1 source) Other injury of unspecified body region, initial encounter; Translations: [Hematoma] Onset: 10-23-2022 Episodic Other nutritional; endocrine; and metabolic disorders (12 sources) Body mass index (BMI) 36.0-36.9, adult; Translations: [Body mass index (BMI) 37.0-37.9, adult] Onset: 01-09-2015 01-09-2015 Chronic Other nutritional; endocrine; and metabolic disorders (2 sources) Body mass index (BMI) 37.0-37.9, adult; Translations: [Body mass index (BMI) 37.0-37.9, adult] Onset: 01-09-2015 06-08-2015 Chronic Other nutritional; endocrine; and metabolic disorders (1 source) Obese class II; Translations: [Obesity, unspecified] Onset: 10-23-2022 10-23-2022 Chronic Merissa-; endo-; and myocarditis; cardiomyopathy (16 sources) Other cardiomyopathies; Translations: [Primary idiopathic hypertrophic cardiomyopathy] Onset: 01-05-2015 02-16-2015 Chronic Pulmonary heart disease (8 sources) Pulmonary hypertension; Translations: [Other secondary pulmonary hypertension] Onset: 01-05-2015 01-05-2015 Chronic Superficial injury; contusion (1 source) Hematoma of scrotum; Translations: [Contusion of scrotum and testes, initial encounter] Onset: 10-21-2022 10-23-2022 Episodic Unclassified (10 sources) Obstructive sleep apnea syndrome; Translations: [Body mass index (BMI) 37.0-37.9, adult] Onset: 01-09-2015 03-08-2015 Chronic Unclassified (4 sources) Long-term drug therapy; Translations: [Other correction (current) drug therapy] Onset: 01-05-2015 01-05-2015 Unclassified (1 source) Longstanding persistent atrial fibrillation; Translations: [Longstanding persistent atrial fibrillation (HCC)] Onset: 10-23-2022 Past or Other Problems Problem Classification Problem Date Documented Da te Episodic/Chronic Cardiac dysrhythmias (16 sources) Palpitations; Translations: [Palpitations] Onset: 01-05-2015 Resolved: 05-24-2016 01-05-2015 Episodic Other aftercare (4 sources) Other correction (current) drug therapy; Translations: [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] Onset: 01-05-2015 01-05-2015 Episodic Other lower respiratory disease (12 sources) Snoring; Translations: [Lung function testing abnormal] Onset: 01-09-2015 01-09-2015 Episodic Other screening for suspected conditions (not mental disorders or infectious disease) (4 sources) Lung function testing abnormal; Translations: [Abnormal results of pulmonary function studies] Onset: 03-08-2015 03-08-2015 Episodic Residual codes; unclassified (2 sources) Family history of stroke; Translations: [Family history of stroke] 02-16-2015 Episodic Unclassified (14 sources) FH: Hypertension; Translations: [Family history of stroke] 01-09-2015 Episodic Results Test Name Value Interpretation Reference Range Facil ity Vital Signs Date Time Vital Sign Value Performing Clinician Magdalena mack 07-08-2016 15:24-0400 BMI (Body Mass Index) 36.15 kg/m2 Augusto Wright MD [facility] Work Phone: 07-08-2016 15:24-0400 Body weight 124.29 kg Lex Ospina [facility] Work Phone: 07-08-2016 15:24-0400 BP Diastolic 70 mm[Hg] Augusto Wright MD [facility] Work Phone: 07-08-2016 15:24-0400 BP Systolic 180 mm[Hg] Augusto Wright MD [facility] Work Phone: 07-08-2016 15:24-0400 Height 185.42 cm Augusto Wright MD [facility] Work Phone: 07-08-2016 15:24-0400 Pulse (Heart Rate) 80 /min [facility] Work Phone: 07-08-2016 15:24-0400 Weight 124.29 kg Augusto Wright MD [facility] Work Phone: 05-28-2016 14:09-0500 Respiratory Rate 18 /min Augusto Wright MD [facility] Work Phone: 02-20-2016 15:45-0500 Heart rate 53 /min Ranjana Amador RN [facility] Work Phone: 01-31-2016 15:53-0400 BSA (Body Surface Area) 2.46 m2 Augusto Wright MD [facility] Work Phone: 03-08-2015 10:44-0500 Body Temperature 97.5 [degF] Augusto Wright MD [facility] Work Phone: 03-08-2015 10:44-0500 Pulse Oximetry 97 % Augusto Wright MD [facility] Work Phone: Encounters Encounter Date Encounter Type Care Provider Facility Start: 10-30-2022 End: 10-31-2022 ambulatory APPLE ANTONY Facility:[facility] Start: 10-30-2022 End: 10-31-2022 ambulatory LISBETH CARDENAS Facility:[facility] Start: 10-29-2022 Telephone encounter Marian Rock RN NOC Procedures Date Procedure Procedure Detail Performing Clinician Start: 10-20-2022 Antibody screen [facility] AN[facility] Plan of Treatment Date Care Activity Detail Author Start: 10-23-2025 DIABETES SCREEN DIABETES SCREEN [facility] Start: 11-29-2022 Influenza vaccination INFLUENZA (#1) [facility] Start: 03-31-2022 DEPRESSION ASSESSMENT DEPRESSION ASSESSMENT [facility] Start: 02-07-2022 LIPID SCREEN LIPID SCREEN [facility] Start: 08-07-2017 End: 02-07-2017 *Hepatic Function Panel *Hepatic Function Panel [facility] Work Phone: Start: 08-07-2017 End: 02-07-2017 Lipid panel [AGGREGATE] *Lipid Profile CC PCP [facility] Work Phone: Start: 08-07-2017 End: 02-07-2017 *Hepatic Function Panel *Hepatic Function Panel [facility] Work Phone: Start: 08-07-2017 End: 02-07-2017 Lipid panel [AGGREGATE] *Lipid Profile CC PCP [facility] Work Phone: Start: 03-13-2017 End: 03-13-2017 Appointment Appointment [facility] Work Phone: Start: 02-10-2017 End: 02-07-2017 *Hepatic Function Panel *Hepatic Function Panel [facility] Work Phone: Start: 02-10-2017 End: 02-07-2017 Lipid panel [AGGREGATE] *Lipid Profile CC PCP [facility] Work Phone: Start: 02-10-2017 End: 02-07-2017 *Hepatic Function Panel *Hepatic Function Panel [facility] Work Phone: Start: 02-10-2017 End: 02-07-2017 Lipid panel [AGGREGATE] *Lipid Profile CC PCP [facility] Work Phone: Start: 2017 PROSTATE CANCER SCREENING DISCUSSION PROSTATE CANCER SCREENING DISCUSSION [facility] Start: 10-07-2016 End: 10-07-2016 Appointment Appointment [facility] Work Phone: Start: 10-07-2016 End: 10-07-2016 Appointment Appointment [facility] Work Phone: Start: 08-08-2016 End: 08-10-2016 *Hepatic Function Panel *Hepatic Function Panel [facility] Work Phone: Start: 08-08-2016 End: 08-10-2016 Lipid panel [AGGREGATE] *Lipid Profile CC PCP [facility] Work Phone: Start: 08-08-2016 End: 08-10-2016 *Hepatic Function Panel *Hepatic Function Panel [facility] Work Phone: Start: 08-08-2016 End: 08-10-2016 Lipid panel [AGGREGATE] *Lipid Profile CC PCP [facility] Work Phone: Start: 07-08-2016 End: 07-08-2016 Follow Up Appt 3 months Follow Up Appt 3 months [facility] Work Phone: Start: 07-08-2016 End: 07-08-2016 PFM PFM [facility] Work Phone: Start: 07-08-2016 End: 07-08-2016 Follow Up Appt 3 months Follow Up Appt 3 months [facility] Work Phone: Start: 07-08-2016 End: 07-08-2016 PFM PFM [facility] Work Phone: Start: 05-28-2016 End: 05-28-2016 *BMP *BMP [facility] Work Phone: Start: 05-28-2016 End: 05-28-2016 Follow Up Appt 6 weeks Follow Up Appt 6 weeks [facility] Work Phone: Start: 05-28-2016 End: 05-28-2016 Follow Up BP Check Follow Up BP Check [facility] Work Phone: Start: 05-28-2016 End: 05-28-2016 MMM MMM [facility] Work Phone: Start: 05-28-2016 End: 05-28-2016 *BMP *BMP [facility] Work Phone: Start: 05-28-2016 End: 05-28-2016 Follow Up Appt 6 weeks Follow Up Appt 6 weeks [facility] Work Phone: Start: 05-28-2016 End: 05-28-2016 Follow Up BP Check Follow Up BP Check [facility] Work Phone: Start: 05-28-2016 End: 05-28-2016 MMM MMM [facility] Work Phone: Start: 04-05-2016 End: 05-23-2016 INR Coag RelTime (PPP) *PT/INR - Standing Order [facility] Work Phone: Start: 04-05-2016 End: 05-23-2016 Coagulation factor induced.INR assay in platelet poor plasma *PT/INR - Standing Order [facility] Work Phone: Start: 02-20-2016 End: 02-20-2016 Ecg routine ecg w/least 12 lds w/i&r EKG (In office) [facility] Work Phone: Start: 02-20-2016 End: 02-20-2016 Electrocardiogram, complete EKG (In office) [facility] Work Phone: Start: 01-31-2016 End: 02-09-2016 *BMP *BMP [facility] Work Phone: Start: 01-31-2016 End: 02-09-2016 *Hepatic Function Panel *Hepatic Function Panel [facility] Work Phone: Start: 01-31-2016 End: 02-01-2016 Cardioversion Cardioversion [facility] Work Phone: Start: 01-31-2016 End: 02-13-2016 Chest x-ray X-Ray, Chest, PA & Lateral [facility] Work Phone: Start: 01-31-2016 End: 01-31-2016 Ecg routine ecg w/least 12 lds w/i&r EKG (In office) [facility] Work Phone: Start: 01-31-2016 End: 01-31-2016 Follow Up Appt 3 months Follow Up Appt 3 months [facility] Work Phone: Start: 01-31-2016 End: 02-09-2016 Lipid panel [AGGREGATE] *Lipid Profile CC PCP [facility] Work Phone: Start: 01-31-2016 End: 01-31-2016 MMM MMM [facility] Work Phone: Start: 01-31-2016 End: 01-31-2016 Pulmonary Function Test - complete Pulmonary Function Test - complete [facility] Work Phone: Start: 01-31-2016 End: 02-09-2016 Thyroid stimulating hormone (TSH) *TSH [facility] Work Phone: Start: 01-31-2016 End: 02-09-2016 Thyroxine (T4) *T4 (Total) [facility] Work Phone: Start: 01-31-2016 End: 02-09-2016 *BMP *BMP [facility] Work Phone: Start: 01-31-2016 End: 02-09-2016 *Hepatic Function Panel *Hepatic Function Panel [facility] [employer] [facility] Work Phone: Start: 01-31-2016 End: 02-01-2016 Cardioversion Cardioversion [facility] [employer] Work Phone: Start: 01-31-2016 End: 02-13-2016 Chest x-ray X-Ray, Chest, PA & Lateral [facility] Work Phone: Start: 01-31-2016 End: 01-31-2016 Electrocardiogram, complete EKG (In office) [facility] Work Phone: Start: 01-31-2016 End: 01-31-2016 Follow Up Appt 3 months Follow Up Appt 3 months [facility] Work Phone: Start: 01-31-2016 End: 02-09-2016 Lipid panel [AGGREGATE] *Lipid Profile CC PCP [facility] Work Phone: Start: 01-31-2016 End: 01-31-2016 MMM MMM [facility] Work Phone: Start: 01-31-2016 End: 01-31-2016 Pulmonary Function Test - complete Pulmonary Function Test - complete [facility] Work Phone: Start: 01-31-2016 End: 02-09-2016 Thyroid stimulating hormone (TSH) *TSH [facility] Work Phone: Start: 01-31-2016 End: 02-09-2016 Thyroxine (T4) *T4 (Total) [facility] Work Phone: Start: 10-06-2015 End: 10-26-2015 *BMP *BMP [facility] Work Phone: Start: 10-06-2015 End: 10-26-2015 *BMP *BMP [facility] Work Phone: Start: 09-19-2015 End: 09-20-2015 *BMP *BMP [facility] Work Phone: Start: 09-19-2015 End: 09-19-2015 Echocardiography Echocardiogram (complete) [facility] Work Phone: Start: 09-19-2015 End: 09-19-2015 Follow Up Appt 6 months Follow Up Appt 6 months [facility] Work Phone: Start: 09-19-2015 End: 09-20-2015 INR Coag RelTime (PPP) *PT/INR - Standing Order [facility] Work Phone: Start: 09-19-2015 End: 09-19-2015 PFM PFM [facility] Work Phone: Start: 09-19-2015 End: 09-20-2015 *BMP *BMP [facility] Work Phone: Start: 09-19-2015 End: 09-20-2015 Coagulation factor induced.INR assay in platelet poor plasma *PT/INR - Standing Order [facility] Work Phone: Start: 09-19-2015 End: 09-19-2015 Echocardiography Echocardiogram (complete) [facility] Work Phone: Start: 09-19-2015 End: 09-19-2015 Follow Up Appt 6 months Follow Up Appt 6 months [facility] Work Phone: Start: 09-19-2015 End: 09-19-2015 PFM PFM [facility] Work Phone: Start: 06-08-2015 End: 06-08-2015 Follow Up Appt 3 months Follow Up Appt 3 months [facility] Work Phone: Start: 06-08-2015 End: 06-08-2015 Follow Up Appt 6 months Follow Up Appt 6 months [facility] Work Phone: Start: 06-08-2015 End: 06-08-2015 Follow Up Appt Other Follow Up Appt Other [facility] Work Phone: Start: 06-08-2015 End: 06-22-2015 Follow Up BP Check Follow Up BP Check [facility] Work Phone: Start: 06-08-2015 End: 06-08-2015 MMM MMM [facility] Work Phone: Start: 06-08-2015 End: 06-08-2015 PFM PFM [facility] Work Phone: Start: 06-08-2015 End: 06-08-2015 Follow Up Appt 3 months Follow Up Appt 3 months [facility] Work Phone: Start: 06-08-2015 End: 06-08-2015 Follow Up Appt 6 months Follow Up Appt 6 months [facility] Work Phone: Start: 06-08-2015 End: 06-08-2015 Follow Up Appt Other Follow Up Appt Other [facility] Work Phone: Start: 06-08-2015 End: 06-22-2015 Follow Up BP Check Follow Up BP Check [facility] Work Phone: Start: 06-08-2015 End: 06-08-2015 MMM MMM [facility] Work Phone: Start: 06-08-2015 End: 06-08-2015 PFM PFM [facility] Work Phone: Start: 05-30-2015 End: 02-13-2016 Pulmonary Function Test - complete Pulmonary Function Test - complete [facility] Work Phone: Start: 05-30-2015 End: 02-13-2016 Pulmonary Function Test - complete Pulmonary Function Test - complete [facility] Work Phone: Start: 04-19-2015 End: 04-19-2015 Follow Up BP Check Follow Up BP Check [facility] Work Phone: Start: 04-19-2015 End: 04-19-2015 Follow Up BP Check Follow Up BP Check [facility] Work Phone: Start: 03-29-2015 End: 03-29-2015 EPS Referral EPS [facility] [place], [address] [place] [address], [id number] [facility] Work Phone: Start: 03-29-2015 End: 03-29-2015 EPS Referral EPS Referral [facility] [place], [address] [place] [address], [id number] [facility] [employer] Work Phone: Start: 03-22-2015 End: 03-22-2015 Ecg routine ecg w/least 12 lds w/i&r EKG (In office) [facility] Work Phone: Start: 03-22-2015 End: 03-22-2015 Follow Up Appt 3 months Follow Up Appt 3 months [facility] Work Phone: Start: 03-22-2015 End: 03-22-2015 Follow Up BP Check Follow Up BP Check [facility] Work Phone: Start: 03-22-2015 End: 03-22-2015 MMM MMM [facility] Work Phone: Start: 03-22-2015 End: 03-22-2015 Electrocardiogram, complete EKG (In office) [facility] Work Phone: Start: 03-22-2015 End: 03-22-2015 Follow Up Appt 3 months Follow Up Appt 3 months [facility] Work Phone: Start: 03-22-2015 End: 03-22-2015 Follow Up BP Check Follow Up BP Check [facility] Work Phone: Start: 03-22-2015 End: 03-22-2015 MMM MMM [facility] Work Phone: Start: 03-13-2015 End: 03-14-2015 INR Coag RelTime (PPP) *PT/INR [facility] Work Phone: Start: 03-13-2015 End: 03-14-2015 Coagulation factor induced.INR assay in platelet poor plasma *PT/INR [facility] Work Phone: Start: 03-08-2015 End: 02-13-2016 [facility] Work Phone: Start: 03-08-2015 End: 02-13-2016 Follow Up Appt 3 months Follow Up Appt 3 months [facility] Work Phone: Start: 03-08-2015 End: 02-13-2016 [facility] Work Phone: Start: 03-08-2015 End: 02-13-2016 Follow Up Appt 3 months Follow Up Appt 3 months [facility] Work Phone: Start: 03-07-2015 End: 03-07-2015 Ecg routine ecg w/least 12 lds w/i&r EKG (In office) [facility] Work Phone: Start: 03-07-2015 End: 03-07-2015 Electrocardiogram, complete EKG (In office) [facility] Work Phone: Start: 03-06-2015 End: 03-08-2015 *BMP *BMP [facility] Work Phone: Start: 03-06-2015 End: 03-07-2015 Cardioversion Cardioversion [facility] Work Phone: Start: 03-06-2015 End: 03-08-2015 *BMP *BMP [facility] Work Phone: Start: 03-06-2015 End: 03-07-2015 Cardioversion Cardioversion [facility] Work Phone: Start: 02-16-2015 End: 02-16-2015 Follow Up Appt 1 month Follow Up Appt 1 month [facility] Work Phone: Start: 02-16-2015 End: 02-16-2015 MMM MMM [facility] Work Phone: Start: 02-16-2015 End: 02-16-2015 Follow Up Appt 1 month Follow Up Appt 1 month [facility] Work Phone: Start: 02-16-2015 End: 02-16-2015 MMM MMM [facility] Work Phone: Start: 02-10-2015 End: 02-13-2015 *BMP *BMP [facility] Work Phone: Start: 02-10-2015 End: 02-13-2015 *BMP *BMP [facility] Work Phone: Start: 01-27-2015 End: 01-27-2015 Pulmonary Referral Pulmonary Referral Jagdeep [place], [facility] [place], [address], [place], [address] [facility] Work Phone: Start: 01-27-2015 End: 01-27-2015 Pulmonary Referral Pulmonary Referral Jagdeep Selby, [facility] [place], [address], [place], [address] [facility] Work Phone: Start: 01-23-2015 End: 01-27-2015 *BMP *BMP [facility] Work Phone: Start: 01-23-2015 End: 01-27-2015 *BMP *BMP [facility] Work Phone: Start: 01-09-2015 End: 01-09-2015 *BMP *BMP [facility] Work Phone: Start: 01-09-2015 End: 01-09-2015 Ecg routine ecg w/least 12 lds w/i&r EKG (In office) [facility] Work Phone: Start: 01-09-2015 End: 01-09-2015 Follow Up Appt 1 month Follow Up Appt 1 month [facility] Work Phone: Start: 01-09-2015 End: 01-09-2015 Follow Up Appt Other Follow Up Appt Other [facility] Work Phone: Start: 01-09-2015 End: 01-11-2015 INR Coag RelTime (PPP) *PT/INR - Standing Order [facility] Work Phone: Start: 01-09-2015 End: 01-09-2015 MMM MMM [facility] Work Phone: Start: 01-09-2015 End: 01-09-2015 Pulmonary Function Test - complete Pulmonary Function Test - complete [facility] Work Phone: Start: 01-09-2015 End: 01-09-2015 *BMP *BMP [facility] Work Phone: Start: 01-09-2015 End: 01-11-2015 Coagulation factor induced.INR assay in platelet poor plasma *PT/INR - Standing Order [facility] Work Phone: Start: 01-09-2015 End: 01-09-2015 Electrocardiogram, complete EKG (In office) [facility] Work Phone: Start: 01-09-2015 End: 01-09-2015 Follow Up Appt 1 month Follow Up Appt 1 month [facility] Work Phone: Start: 01-09-2015 End: 01-09-2015 Follow Up Appt Other Follow Up Appt Other [facility] Work Phone: Start: 01-09-2015 End: 01-09-2015 MMM MMM [facility] Work Phone: Start: 01-09-2015 End: 01-09-2015 Pulmonary Function Test - complete Pulmonary Function Test - complete [facility] Work Phone: Start: 01-05-2015 End: 01-09-2015 *BMP *BMP [facility] Work Phone: Start: 01-05-2015 End: 01-09-2015 INR Coag RelTime (PPP) *PT/INR [facility] Work Phone: Start: 01-05-2015 End: 01-09-2015 *BMP *BMP [facility] Work Phone: Start: 01-05-2015 End: 01-09-2015 Coagulation factor induced.INR assay in platelet poor plasma *PT/INR [facility] Work Phone: Start: 01-23-2012 SHINGRIX VACCINE (1 of 2) SHINGRIX VACCINE (1 of 2) [facility] Start: 2007 COLOGUARD (FIT-DNA) COLOGUARD (FIT-DNA) [facility] Start: 2007 Colonoscopy COLONOSCOPY [facility] Start: 2007 COLORECTAL CANCER SCREENING COLORECTAL CANCER SCREENING [facility] Start: [address] COLONOGRAPHY [facility] Start: 2007 FECAL OCCULT BLOOD FECAL OCCULT BLOOD [facility] Start: 2007 SIGMOIDOSCOPY SIGMOIDOSCOPY [facility] Start: 1981 Urine microalbumin profile DTAP,TDAP,TD (1 - Tdap) [facility] Start: 01-23-1980 ANNUAL PCP TEAM CHRONIC DISEASE VISIT ANNUAL PCP TEAM CHRONIC DISEASE VISIT [facility] Start: 01-23-1980 BP CONTROLLED (<130/80) BP CONTROLLED (<130/80) [facility] Start: 01-23-1980 HEPATITIS C SCREENING HEPATITIS C SCREENING [facility] Start: 01-23-1980 HIV SCREENING HIV SCREENING [facility] Start: 1962 COVID-19 VACCINE (#1) COVID-19 VACCINE (#1) [facility] Patient Education [facility] P[facility] Date Payer Category Payer Private Health Insurance AETNA A ETNA POS [id number] 2016-Present [phone] [address] [place] [address] POS [id number] 2016 Private Health Insurance [id number] Social History Date Type Detail Facility Start: [facility]2022 [facility] Start: 10-20-2022 Alcohol intake Lifetime non-d milana (finding) [facility] Start: 10-20-2022 History of Social function [facility] Start: 10-20-2022 Tobacco use panel [facility] Start: 1960 Sex Assigned At Not on file C [facility] Progress note 11-03-2022 Note Date & Type Note Facility 11-03-2022 Note HNO ID: [id number] Author: Logan Davis MD Service: ? Author Type: Physician Type: Progress Notes Filed: 11/03/2022 5:34 PM Note Text: This note was created using [employer]. 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 The most significant traumatic injuries was a soft tissue contusion involving the soft tissues of the left side of the neck with probable blood in the subcutaneous fat, adjacent to the platysma and adjacent to the left submandibular gland. He is normally on coumadin. He is here for followup. Does not have any major complaints. States his neck swelling has decreased significantly. Review of Systems Denies, hoarseness, SOB, dysphagia Objective BP 138/88 Pulse 88 Resp 20 Ht 185.4 cm (6' 1 ) Wt 125.2 kg (276 lb) BMI 36.41 kg/m? Physical Exam No acute distress Non-labored breathing, no stridor Mild ecchymoses of neck without any palpable hematoma Assessment and Plan Neck hematoma after trauma while on coumadin No acute surgical issues, can return to work next week Follow-up as needed only [facility] Plan of care note 10-23-2022 Note Date & Type Note Facility 10-23-2022 Note HNO ID: [id number] Author: Luis Sparrow CPhT Service: ? Author Type: Airbrush Artist Photography Type: Plan of Care Filed: 10/23/2022 1:08 PM Note Text: PHARMACY BEDSIDE DELIVERY SERVICE Patient Name: Marisela Perkins The marked outpatient medications were Filled at: [facility] and delivered to the patient's bedside to patient. Medication List START taking these medications acetaminophen 325 mg tablet Commonly known as: TYLENOL Take 3 tablets by mouth every 6 hours as needed for pain. enoxaparin 120 mg/0.8 mL injection Commonly known as: LOVENOX Inject 0.8 mL subcutaneously every 12 hours for 9 doses. HIGH POTENCY MULTIVIT (W-IRON) 9 mg iron-400 mcg tablet Generic drug: therapeutic multivitamin-minerals Take 1 tablet by mouth once daily. Start taking on: October 24, 2022 CHANGE how you take these medications warfarin 5 mg tablet Commonly known as: COUMADIN Take 1 tablet by mouth once daily. Start taking on: October 25, 2022 What changed: when to take this These instructions start on October 25, 2022. If you are unsure what to do until then, ask your doctor or other care provider. CONTINUE taking these medications aspirin 81 mg Cap atorvastatin 10 mg tablet Commonly known as: LIPITOR carvedilol 25 mg tablet Commonly known as: COREG cloNIDine HCl 0.2 mg tablet Commonly known as: CATAPRES furosemide 20 mg tablet Commonly known as: LASIX hydrALAZINE 100 mg tablet Commonly known as: APRESOLINE KLOR-CON M20 20 mEq tablet Generic drug: potassium chloride ER You might also be taking other medications not listed above. If you have questions about any of your other medications, talk to the person who prescribed them or your Primary Care Provider. Luis Sparrow [facility] PAGER: Luis Sparrow ([facility]) [phone] October 23, 2022 1:08 PM [facility] History of Past illness Narrative 10-23-2022 Note Date & Type Note Facility documented as of this encounter (statuses as of 10/29/2022) [facility] Progress note 10-22-2022 Note Date & Type Note Facility 10-22-2022 Note HNO ID: [id number] Author: Heather Cabral MD Service: General Surgery Author Type: Physician Type: Progress Notes Filed: 10/22/2022 2:02 PM Note Text: Trauma Surgery Progress Note SERVICE DATE: 10/22/2022 Trauma Service Pager: For questions or concerns Mon-Fri 6a-5p please page [phone]. After 5pm and on Weekends and Holidays, please page [phone] if in ICU or [phone] if on RNF. SUBJECTIVE: Patient denied any new or acute events overnight. His pain is currently controlled. He has been ambulating on his own. He denied any current GIRARD, CP, SOB, N/V, ABD pain, fevers, chills, or cough. He is tolerating his diet and passing flatus. OBJECTIVE: Vitals: Temp (24hrs), Av ?C (98.6 ?F), Min:36.7 ?C (98.1 ?F), Max:37.2 ?C (99 ?F) BP 100/66 Pulse 107 Temp 36.9 ?C (98.4 ?F) (Oral) Resp 16 Ht 185.4 cm (6' 1 ) Wt 125.3 kg (276 lb 3.8 oz) SpO2 98% BMI 36.44 kg/m? O2 Therapy: Room Air IANDO: Date 10/21/22699 - 10/22/22 0659 10/22/22699 - 10/23/22 0659 Shift 7426-5730 4296-4564 7625-5736 24 Hour Total 3341-3310 0148-0901 8987-5936 24 Hour Total INTAKE PO 600 600 240 240 PO 600 600 240 240 Shift Total 600 600 240 240 OUTPUT Urine 852 365 5106 350 350 Output ([REMOVED] Indwelling Urinary Catheter 10/20/22 10/22/22 1122) 860 619 8556 350 350 Shift Total 191 305 1860 350 350 Weight (kg) 122.9 122.9 122.9 122.9 125.3 125.3 125.3 125.3 MEDICATIONS: Current Facility-Administered Medications Medication Dose Route Frequency potassium chloride ER 20 mEq tab(s) (KLOR-CON) 20 mEq ORAL BID carvedilol 25 mg tab(s) (COREG) 25 mg ORAL q 12 H 6a/6p atorvastatin 10 mg tab(s) (LIPITOR) 10 mg ORAL AT BEDTIME cloNIDine HCl 0.2 mg tab(s) (CATAPRES) 0.2 mg ORAL TID hydrALAZINE 100 mg tab(s) (APRESOLINE) 100 mg ORAL TID furosemide 20 mg tab(s) (LASIX) 20 mg ORAL DAILY senna-docusate 8.6-50 mg 1 tablet (SENNA-S) 1 tablet ORAL BID acetaminophen 975 mg tab(s) (TYLENOL) 975 mg ORAL QID NaCl 0.9% iv flush bag 20 mL INTRAVENOUS PRN oxyCODONE IR 5 mg tab(s) (ROXICODONE) 5 mg ORAL q 4 H PRN Labs: Recent Labs 10/22/22 0015 10/21/22 0149 10/20/22 0837 NA 140 140 140 K 3.4* 3.3* 3.7 CHLOR 106* 107* 105 CO2 24 23 BUN 28* 31* 24 CREAT 1.47* 1.84* 2.07* GLUC 108* 109* 150* ANION 9 9 12 CA 8.2* 8.3* 8.4* ALB -- -- 3.6* AST -- -- 19 ALT -- -- 21 ALKPHOS -- -- 68 TBILI -- -- 1.1 WBC 12.57* 15.81* 16.80* HB 7.5* 7.7* 9.3* HCT 22.6* 23.2* 27.7* PLT 169 174 216 INR -- -- 1.4* PHYSICAL EXAM: Genl: Appears age appropriate. No acute distress. Resting comfortably. Head/Face: Normocephalic. Atraumatic. Eyes: EOMI. Sclera not icteric, not injected Neck: Hematoma and ecchymosis to anterior neck. Resp: Lung sounds are clear bilat. No wheezes. No rales. Breathing is non-labored on RA @98%. CVS: HR as above; 2+ pulses at RA, DP, PT bilat. GI: Abdomen is soft, non-tender, not distended. No peritonitis. : Sethi draining clear yellow urine. Large hematoma to right groin, hip, thigh. Significant scrotal edema and bruising (improved from 10/21). MSK: Extremities without clubbing, cyanosis, edema. Normal ROM x 4. Skin: Warm and dry. Not jaundiced. Neuro: AANDOx3. Strength and sensation normal. ARAGON. GCS15. Psych: Normal mood. Normal affect. Appropriate insight into current situation. 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 None Care Plan: Soft tissue contusion to neck No changes to voice Tolerating regular foods without difficulty Conservative non-op management Monitor Right groin/thigh hematoma, ABLA on coumadin INR 1.4 on admission Hg 7.5 from 7.7 from 9.3 Monitor hematoma for expansion Scrotal support DC sethi Okay to start therapeutic LVX today. Will need to bridge for Coumadin restart. Will plan on restarting home Coumadin on FridayOctober 25. Plan discussed in depth with trauma attending surgeon, Dr. Cabral. Hypokalemia K (more content not included)... [facility] Clinical Note 10-22-2022 Note Date & Type Note Facility 10-22-2022 Note HNO ID: [id number] Author: Amanda Celeste RN Service: Care Management Author Type: Registered Nurse Type: Care Mgt Initial Assessment Filed: 10/22/2022 11:55 AM Note Text: CARE MANAGEMENT: ASSESSMENT AND DISCHARGE PLAN SERVICE DATE: October 22, 2022 SERVICE TIME: 11:26 AM PCP: Apple Antony NP (Confirmed with patient) Primary Contact: Extended Emergency Contact Information Primary Emergency Contact: Deirdre Perkins Mobile Relation: Mother Admission Status: Inpatient Insurance Provider: WOLF POS Discharge Planning requested by: Per Department Practice Potential Transition Plans Home Advance Directives Current Advance Directive: Health Care Power of Binder Cutter Hand;Living Will In Chart: No Current Living Arrangements and Support Lives with: Family members, Parent Type of Residence: Private Residence (House) Does the patient have to climb stairs at home?: Yes;stairs outside the home;stairs within the home Support: Family members How do you manage to accomplish the following: Independent: Ambulation;Bathe/Shower;Dress;Going to the bathroom;Meals/Meal Prep;Medication Management;Transportation to appointments/community Current Services/Equipment Current Post-Acute Service(s): None Discharge Planning Patient Goal(s): Be able to go home, General wellness Strawberry of Choice Explained: Strawberry of Choice Given: No Reason Not Given: No placements necessary at this time. Will follow. Are you interested in bedside delivery of your medications? Yes Discharge Planning Participant(s): Patient Caregiver Assessment: Caregiver is ready, willing and able to meet the patient's needs as recommended by the inter-professional team: Yes Name of Caregiver: Patient reports that he has a good family support system in place Transport at Discharge: Transportation Arrangements: Car; Patient's family will provide transportation at discharge. Needs Prior to Discharge: Needs Prior to Discharge: Pharmacy Bedside Delivery Post-Acute Discharge Plan: Chart reviewed. S/p struck by metal pole. Ejected from farming equipment. Soft tissue contusion to neck. Right groin/thigh hematoma, ABLA on coumadin. Mobilizing independently in his room. Spoke with patient at the bedside. Explained care management role. Patient resides at home with his mother Deirdre, brother and sister. Multilevel home. Independent with personal care and IADLs. Employed. Drives. At this time, plan is for patient to return home at discharge. Patient states his family is willing to assist and will provide transportation at discharge. Will follow clinical course for transitional/discharge planning needs. SIGNATURE: Amanda Celeste RN PATIENT NAME: Marisela Perkins DATE: October 22, 2022 TIME: 11:26 AM CONTACT #: [id number] [facility] Progress note 10-21-2022 Note Date & Type Note Facility 10-21-2022 Note HNO ID: [id number] Author: Addis Lujan APRN.CNP Service: General Surgery Author Type: Nurse Practitioner Type: Progress Notes Filed: 10/21/2022 3:30 PM Note Text: Trauma Surgery Progress Note SERVICE DATE: 10/21/2022 Trauma Service Pager: For questions or concerns Mon-Fri 6a-5p please page [phone]. After 5pm and on Weekends and Holidays, please page [phone] if in ICU or [phone] if on RNF. SUBJECTIVE: NAEON. Patient reports pain is controlled at this time. Tolerating diet, denies changes to voice. Was able to ambulate from cot to bed when he arrive to floor from ED. OBJECTIVE: Vitals: Temp (24hrs), Av.4 ?C (99.4 ?F), Min:37.2 ?C (99 ?F), Max:37.6 ?C (99.7 ?F) BP 122/80 Pulse 114 Temp 37.6 ?C (99.7 ?F) (Oral) Resp 18 Ht 185.4 cm (6' 1 ) Wt 122.9 kg (271 lb) SpO2 95% BMI 35.75 kg/m? O2 Therapy: Room Air IANDO: Date 10/20/22 1500 - 10/21/22 0659 10/21/22 0700 - 10/22/22 0659 Shift 8432-1459 7288-5208 24 Hour Total 7602-3653 8790-6253 1883-9324 24 Hour Total INTAKE PO 350 350 600 600 PO 350 350 600 600 Shift Total 350 350 600 600 OUTPUT Urine 325 325 600 600 Output ( Indwelling Urinary Catheter 10/20/22) 325 325 600 600 Shift Total 325 325 600 600 Weight (kg) 122.9 122.9 122.9 122.9 122.9 122.9 122.9 MEDICATIONS: Current Facility-Administered Medications Medication Dose Route Frequency carvedilol 25 mg tab(s) (COREG) 25 mg ORAL q 12 H 6a/6p cloNIDine HCl 0.2 mg tab(s) (CATAPRES) 0.2 mg ORAL TID hydrALAZINE 100 mg tab(s) (APRESOLINE) 100 mg ORAL TID furosemide 20 mg tab(s) (LASIX) 20 mg ORAL DAILY potassium chloride ER 20 mEq tab(s) (KLOR-CON) 20 mEq ORAL DAILY acetaminophen 975 mg tab(s) (TYLENOL) 975 mg ORAL QID NaCl 0.9% iv flush bag 20 mL INTRAVENOUS PRN oxyCODONE IR 5 mg tab(s) (ROXICODONE) 5 mg ORAL q 4 H PRN Labs: Recent Labs 10/21/22 0149 10/20/22 0837 NA 140 140 K 3.3* 3.7 CHLOR 107* 105 CO2 24 23 BUN 31* 24 CREAT 1.84* 2.07* GLUC 109* 150* ANION 9 12 CA 8.3* 8.4* ALB -- 3.6* AST -- 19 ALT -- 21 ALKPHOS -- 68 TBILI -- 1.1 WBC 15.81* 16.80* HB 7.7* 9.3* HCT 23.2* 27.7* PLT 174 216 INR -- 1.4* PHYSICAL EXAM: Genl: Appears age appropriate. No acute distress. Resting comfortably. Head/Face: Normocephalic. Atraumatic. Eyes: EOMI. Sclera not icteric, not injected Neck: Hematoma to anterior neck. Back: T AND L Spine non-tender, no step-offs or deformities noted. No flank tenderness. Resp: Lung sounds are clear bilat. No wheezes. No rales. Breathing is non-labored on RA @95%. CVS: RRR as above; 2+ pulses at RA, DP, PT bilat. GI: Abdomen is soft, non-tender, not distended. Bowel sounds normoactive. No peritonitis. : Sethi draining clear yellow urine. Large hematoma to right groin, hip, thigh. Significant scrotal edema and bruising. MSK: Extremities without clubbing, cyanosis, edema. Normal ROM x 4. Skin: Warm and dry. Not jaundiced. Neuro: AANDOx3. Strength and sensation normal. ARAGON. GCS15. Psych: Normal mood. Normal affect. Appropriate insight into current situation. 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 None Care Plan: Soft tissue contusion to neck No changes to voice Tolerated regular foods Monitor Right groin/thigh hematoma, ABLA on coumadin INR 1.4 on admission Hg 7.7 from 9.3 Monitor hematoma for expansion Holding coumadin (afib) and DVT ppx Scrotal support Continue sethi until swelling has improved Hypokalemia K 3.3 Replace PO Continue home meds (with parameters) Current diet order: DIET REGULAR Pain regimen: Scheduled tylenol; prn oxycodone Bowel regimen: Senna-s Labs: As above PPX: DVT: Holding DVT ppx due to hematoma; SCDs, mobilize Ulcer: n/a Vit D level if > 65 yo: n/a Consulted Services: None Dispo Planning: PT/OT recs n/a - mobilizing independently. Case management following. Incidentals: Asymmetric nodular thickening of the right thyroid, for which tresa (more content not included)... [facility] Summary Purpose Family History No Family History Records FoundNo Family History Records Found Advance Directives No Advanced Directives Records FoundNo Advanced Directives Records Found Additional Source Comments Source Comments (unrecognize d section and content) In the event this informatio n is protected by the Federal Confidentiality of Alcohol and Drug Abuse Patient Records regulations: The Federal rules restrict any use of the information to criminally investigate or prosecute any alcohol or drug abuse patient.[facility] Reason for Visit (unrecogniz ed section and content) Care Teams (unrecognized sec tion and content) (unrecognized sect ion and content) No Status Records FoundNo Status Records Found INFORMATION SOURCE (unrecogn ized section and content) DATE CREATED AUTHOR AUTHOR'S ELDER PINK 11/03/2022 [facility] FOR RECORDS PERTAINING TO PATIENTS WHO ARE OR HAVE BEEN ENROLLED IN A CHEMICAL DEPENDENCY/SUBSTANCEABUSE PROGRAM, SOME INFORMATION MAY BE OMITTED. This clinical summary was aggregated from multiple sources. Caution should be exercised in using it in the provision of clinical care. This summary normalizes information from multiple sources, and as a consequence, information in this document may materially change the coding, format and clinical context of patient data. In addition, data may be omitted in some cases. CLINICAL DECISIONS SHOULD BE BASED ON THE PRIMARY CLINICAL RECORDS. [employer] [facility]. provides no warranty or guarantee of the accuracy or completeness of information in this document.
== END | disposition home or self-care (01) ==
LOC: LAB 15:39
PROVIDERS: PCP Nurse Practitioner Family; Referring Provider Nurse Practitioner Family; Visit Provider Nurse Practitioner Family
DX: I48.19 Other persistent atrial fibrillation (principal); I42.9 Cardiomyopathy, unspecified; I25.10 Atherosclerotic heart disease of native coronary artery without angina pectoris; I10 Essential (primary) hypertension; I44.7 Left bundle-branch block, unspecified
CPT/HCPCS: 36415; 85025; 85610

== ENCOUNTER 2023-06-06 15:24 | Outpatient (RCR) | payer OTHER, SELFPAY ==
[2023-06-06 15:51] LABS: International Normalized Ratio 1.8; Prothrombin Time (Protime)PT. 20.8 SECONDS (11.7-14.9)
== END 2023-06-28 18:00 | disposition home or self-care (01) ==
LOC: LAB 15:24
PROVIDERS: PCP Nurse Practitioner Family; Referring Provider Physician Assistant Medical; Visit Provider Physician Assistant Medical
DX: Z79.01 Long term (current) use of anticoagulants (principal); I48.19 Other persistent atrial fibrillation
CPT/HCPCS: 36415; 85610

== ENCOUNTER 2023-07-02 15:47 | Outpatient (RCR) | payer OTHER, SELFPAY ==
[2023-07-02 16:56] LABS: International Normalized Ratio 2.1; Prothrombin Time (Protime)PT. 23.6 SECONDS (11.7-14.9)
== END 2023-07-29 22:59 | disposition home or self-care (01) ==
LOC: LAB 15:47
PROVIDERS: PCP Nurse Practitioner Family; Referring Provider Physician Assistant Medical; Visit Provider Physician Assistant Medical
DX: Z79.01 Long term (current) use of anticoagulants (principal); I48.19 Other persistent atrial fibrillation
CPT/HCPCS: 36415; 85610

== ENCOUNTER 2023-11-22 10:42 | Outpatient (RCR) | payer OTHER, SELFPAY ==
[2023-11-22 14:13] LABS: International Normalized Ratio 2.4; Prothrombin Time (Protime)PT. 25.9 SECONDS (11.7-14.9)
== END 2023-11-22 18:00 | disposition home or self-care (01) ==
LOC: LAB 10:42
PROVIDERS: PCP Nurse Practitioner Family; Referring Provider Physician Assistant Medical; Visit Provider Physician Assistant Medical
DX: Z79.01 Long term (current) use of anticoagulants (principal); I48.19 Other persistent atrial fibrillation
CPT/HCPCS: 36415; 85610

== ENCOUNTER 2024-07-29 14:41 | Outpatient (RCR) | payer OTHER, SELFPAY ==
[2024-07-29 15:40] LABS: International Normalized Ratio 2.6; Prothrombin Time (Protime)PT. 28.7 SECONDS (11.7-14.9)
== END 2024-07-29 18:00 | disposition home or self-care (01) ==
LOC: LAB 14:41
PROVIDERS: Nurse Practitioner Gerontology; PCP Nurse Practitioner Family; Referring Provider Physician Assistant Medical; Visit Provider Physician Assistant Medical
DX: Z79.01 Long term (current) use of anticoagulants (principal); I48.19 Other persistent atrial fibrillation
CPT/HCPCS: 36415; 85610

== ENCOUNTER 2024-11-24 15:26 | Outpatient (RCR) | payer OTHER, SELFPAY ==
[2024-11-24 16:14] LABS: Prothrombin Time (Protime)PT. 29.7 SECONDS (11.7-14.9)
== END 2024-11-24 18:00 | disposition home or self-care (01) ==
LOC: LAB 15:26
PROVIDERS: Nurse Practitioner Gerontology; PCP Nurse Practitioner Family; Referring Provider Physician Assistant Medical; Visit Provider Physician Assistant Medical
DX: Z79.01 Long term (current) use of anticoagulants (principal); I48.19 Other persistent atrial fibrillation
CPT/HCPCS: 36415; 85610

== ENCOUNTER 2025-01-29 09:51 | Outpatient (RCR) | payer OTHER, SELFPAY ==
[2025-01-29 11:19] LABS: Prothrombin Time (Protime)PT. 28.1 SECONDS (11.7-14.9)
== END 2025-02-26 18:00 | disposition home or self-care (01) ==
LOC: LAB 09:51
PROVIDERS: PCP Nurse Practitioner Family; Referring Provider Physician Assistant Medical; Visit Provider Physician Assistant Medical
DX: Z79.01 Long term (current) use of anticoagulants (principal); I48.19 Other persistent atrial fibrillation
CPT/HCPCS: 36415; 85610